=== PATIENT | female | born 1955 | race Caucasian/White ===

== ENCOUNTER → 2018-05-25 14:14 | Outpatient (CLI) | payer OTHER, SELFPAY ==
--- NOTE | 2018-05-25 14:17 | BI_ITS ---
MAMMOGRAPHY - BILATERAL SCREENING REASON FOR EXAM: Female, 63 years old. Routine annual screening examination. PERTINENT HISTORY: Non-contributory. Remote bilateral excisional breast biopsies. TECHNIQUE: Digital bilateral breast gil (3D mammographic acquisition) in the CC and MLO projections. 2-D mediolateral oblique (MLO) and craniocaudad (CC) views of both breasts were obtained. CAD: Full Field Digital Mammography with Computer Added Detection was performed. COMPARISON: Comparison is made with prior outside examination dated January 28, 2017. FINDINGS: Breast Composition: There are scattered areas of fibroglandular density. There are no dominant masses or suspicious calcifications. Stable appearance of the benign-appearing bilateral axillary lymph nodes. No other significant abnormalities are identified. There has been no significant change since the prior study. BI/SCREENING MAMM (CAD), BILAT IMPRESSION: Stable bilateral screening mammogram. Yearly follow-up mammogram recommended. (A) ASSESSMENT CATEGORY: BIRADS Category 2: Benign. A letter regarding these results will be sent to the patient by the facility within 30 days. Approximately 10% of breast cancers are not detected by mammography. A normal mammogram should not delay biopsy of a clinically suspicious abnormality. [id number] Electronically Signed: Maciel Lutz MD at 15:42 EDT Tel [phone], Service support ,
--- NOTE | 2018-05-25 14:19 | BD_ITS ---
STUDY: DUAL ENERGY X-RAY ABSORPTIOMETRY / DXA REASON FOR EXAM: Female, 63 years old. The patient is postmenopausal. Loss of height. TECHNIQUE: Bone Mineral Density (BMD) measurements of lumbar spine and bilateral hips were obtained. COMPARISON: None. FINDINGS: Lumbar Spine (L1-L4): g/cm2 (0.814) / T-score (-3.1) / Z-score (-1.6) Findings are suggestive of osteoporosis with a high fracture risk. Increased thoracic kyphosis. Left Femur Total: g/cm2 (0.719) / T-score (-2.3) / Z-score (-1.2) Left Femoral Neck: g/cm2 (0.638) / T-score (-2.9) / Z-score (-1.5) Right Femur Total: g/cm2 (0.650) / T-score (-2.8) / Z-score (-1.7) Right Femoral Neck: g/cm2 (0.590) / T-score (-3.2) / Z-score (-1.8) BD/Dexa Bone Density Study IMPRESSION: The patient is considered osteoporotic as outlined below according to World Mukund Organization (WHO) criteria with a high fracture risk. Reference Information: The T-score is the number of standard deviations above or below the standard which is normal for young adults at their peak bone mineral density. The World Health Organization (WHO) interprets the T-scores as follows: Above -1 Normal bone density Between -1 and -2.5 Osteopenia Equal to / or below -2.5 Osteoporosis As a practical clinical guideline, osteopenia may be graded as follows: Mild -1 through -1.5 Moderate -1.6 through -2.0 Severe -2.1 through -2.4 The Z-score is the number of standard deviations above or below age-matched controls. A Z-score of less than -1.5 would be considered abnormal. References: 1. NIH Osteoporosis and Related Bone Diseases http://www.osteo.org 2. International Society for Clinical Densitometry http://www.iscd.org 3. National Osteoporosis Foundation http://www.nof.org Electronically Signed: Maciel Lutz MD at 12:28 EDT Tel [phone], Service support ,
== END ==
PROVIDERS: Family Provider Family Medicine; PCP Family Medicine; Visit Provider Family Medicine
DX: Z12.31 Encounter for screening mammogram for malignant neoplasm of breast (principal); Z78.0 Asymptomatic menopausal state; M40.209 Unspecified kyphosis, site unspecified; M81.0 Age-related osteoporosis without current pathological fracture
CPT/HCPCS: 77063; 77067; 77080

== ENCOUNTER → 2018-06-08 10:26 | Outpatient (CLI) | payer OTHER, SELFPAY ==
[2018-06-08 11:57] LABS: Anion Gap 10 (5-15); BUN 11 mg/dL (7-18); BUN/Creat Ratio 14.4 RATIO (10-20); Calcium,Total 8.9 mg/dL (8.5-10.1); Chloride 105 mmol/L (98-107); Cholesterol 245 mg/dL (200); Creatinine, Serum 0.77 mg/dL (0.55-1.02); EST Glomerular Filtration Rate 81 mL/min (>60); Est Glom Filt Rate - Afr Amer 98 mL/min (>60); Glucose 98 mg/dL (74-106); High Density Lipoprotein 65 mg/dL; Potassium 4.1 mmol/L (3.5-5.1); Sodium Level 138 mmol/L (136-145); Triglycerides 228 mg/dL; Very Low Density Lipoprotein 46 mg/dL (5-40)
== END ==
PROVIDERS: Family Provider Family Medicine; PCP Family Medicine; Visit Provider Family Medicine
DX: I10 Essential (primary) hypertension (principal)
CPT/HCPCS: 36415; 80048; 80061

== ENCOUNTER → 2018-08-19 10:13 | Outpatient (CLI) | payer OTHER, SELFPAY ==
[2018-08-19 12:34] LABS: AST(SGOT) 20 U/L (15-37); Alanine Aminotransfer ALT/SGPT 36 U/L (13-56); Cholesterol 192 mg/dL (200); High Density Lipoprotein 70 mg/dL; Triglycerides 216 mg/dL; Very Low Density Lipoprotein 43 mg/dL (5-40)
== END ==
PROVIDERS: Family Provider Family Medicine; PCP Family Medicine; Visit Provider Family Medicine
DX: I10 Essential (primary) hypertension (principal)
CPT/HCPCS: 36415; 80061; 84450; 84460

== ENCOUNTER → 2019-05-30 09:44 | Outpatient (CLI) | payer OTHER, SELFPAY ==
[2019-05-30 11:37] LABS: AST(SGOT) 22 U/L (15-37); Alanine Aminotransfer ALT/SGPT 32 U/L (13-56); Anion Gap 8 (5-15); BUN 11 mg/dL (7-18); BUN/Creat Ratio 15.6 RATIO (10-20); Calcium,Total 9.2 mg/dL (8.5-10.1); Chloride 109 mmol/L (98-107); Cholesterol 167 mg/dL (200); Creatinine, Serum 0.71 mg/dL (0.55-1.02); EST Glomerular Filtration Rate 88 mL/min (>60); Est Glom Filt Rate - Afr Amer 107 mL/min (>60); Glucose 116 mg/dL (74-106); High Density Lipoprotein 73 mg/dL; Potassium 4.1 mmol/L (3.5-5.1); Sodium Level 142 mmol/L (136-145); Triglycerides 129 mg/dL; Very Low Density Lipoprotein 26 mg/dL (5-40)
== END ==
PROVIDERS: Family Provider Family Medicine; PCP Family Medicine; Visit Provider Family Medicine
DX: I10 Essential (primary) hypertension (principal)
CPT/HCPCS: 36415; 80048; 80061; 84450; 84460

== ENCOUNTER → 2019-11-29 09:53 | Outpatient (CLI) | payer OTHER, SELFPAY ==
[2019-11-29 13:06] LABS: Anion Gap 6 (5-15); BUN 9 mg/dL (7-18); BUN/Creat Ratio 11.6 RATIO (10-20); Calcium,Total 9.2 mg/dL (8.5-10.1); Chloride 112 mmol/L (98-107); Creatinine, Serum 0.78 mg/dL (0.55-1.02); EST Glomerular Filtration Rate 79 mL/min (>60); Est Glom Filt Rate - Afr Amer 96 mL/min (>60); Glucose 105 mg/dL (74-106); Potassium 3.9 mmol/L (3.5-5.1); Sodium Level 142 mmol/L (136-145)
== END ==
PROVIDERS: Family Provider Family Medicine; PCP Family Medicine; Referring Provider Family Medicine; Visit Provider Family Medicine
DX: I10 Essential (primary) hypertension (principal)
CPT/HCPCS: 36415; 80048

== ENCOUNTER → 2020-04-20 10:03 | Outpatient (CLI) | payer MEDICARE, SELFPAY ==
--- NOTE | 2020-04-20 10:09 | RAD_ITS ---
STUDY: X-RAY CHEST REASON FOR EXAM: Female, 65 years old. Dyspnea TECHNIQUE: PA and lateral views of the chest. COMPARISON: None. FINDINGS: There is hyperinflation of the lungs consistent with chronic obstructive lung disease (COPD). There is blunting of both calcified angles posteriorly. Normal size heart. Normal mediastinum and jay. Normal visualized pulmonary arteries. There is atherosclerotic calcification of the aortic arch with tortuosity. There is demineralization of the osseous structures. Increased kyphosis. Normal visualized ribs, clavicles, and shoulders. There is no demonstrated abnormality of the visualized soft tissue structures of the upper abdomen. RAD/Chest PA and Lateral IMPRESSION: Hyperinflation. Blunting of both cost phrenic angles. Electronically Signed: Maciel Lutz, at 10:30 EDT , Service support ,
[2020-04-20 12:51] LABS: Erythrocyte Sedimentation Rate 58 mm/hr (0-30)
[2020-04-20 12:53] LABS: Basophil# 0.07 X10^3/uL; Basophil% 0.6 % (0-1); Eosinophil# 0.01 X10^3/uL; Eosinophils% 0.1 % (0-5); Hemoglobin 12.2 g/dL (12.0-15.0); Lymphocyte % 10.1 % (19-41); Mean Corp Hgb Conc 32.1 g/dL (32-36); Mean Corpuscular Hgb 28.7 pg (27.0-32.0); Mean Corpuscular Volume 89.4 fL (81-99); Mean Platelet Vol. 9.7 fl (6.2-12.0); Monocyte# 1.13 X10^3/uL; Monocyte% 9.5 % (0-10); NRBC Flagged by Analyzer 0 % (0-5); Neutrophil # 8.96 X10^3/uL (2.7-7.7); Neutrophil % 75.7 % (47-70); Platelet Count 533 K/mm3 (150-450); RBC Distribution Width CV 14.1 % (11.6-14.6); RBC Distribution Width SD 45.4 fl (35.1-43.9); Red Blood Count 4.25 M/mm3 (4.2-5.4); White Blood Count 11.8 K/mm3 (4.4-11.0)
[2020-04-20 13:04] LABS: Glucose 137 mg/dL (74-106)
[2020-04-20 13:05] LABS: ALB/GLOB Ratio 0.5 RATIO (0.9-2.4); AST(SGOT) 19 U/L (15-37); Alanine Aminotransfer ALT/SGPT 33 U/L (13-56); Albumin, Serum 2.8 g/dL (3.2-5.0); Alkaline Phosphatase 109 U/L (45-117); Anion Gap 13 (5-15); BUN 36 mg/dL (7-18); BUN/Creat Ratio 15.9 RATIO (10-20); Calcium,Total 11.2 mg/dL (8.5-10.1); Chloride 88 mmol/L (98-107); Creatinine, Serum 2.26 mg/dL (0.55-1.02); EST Glomerular Filtration Rate 23 mL/min (>60); Est Glom Filt Rate - Afr Amer 28 mL/min (>60); Globulin 5.6 g/dL (2.2-4.2); Potassium 3.7 mmol/L (3.5-5.1); Protein, Total 8.4 g/dL (6.4-8.2); Sodium Level 127 mmol/L (136-145); Thyroid Stim Hormone (TSH) 3.65 uIU/mL (0.358-3.74)
== END ==
PROVIDERS: PCP Family Medicine; Referring Provider Family Medicine; Visit Provider Family Medicine
DX: R06.00 Dyspnea, unspecified (principal); R53.83 Other fatigue
CPT/HCPCS: 36415; 71046; 80053; 84443; 85025; 85652

== ENCOUNTER 2020-04-20 18:52 | Inpatient (IN) | payer MEDICARE, SELFPAY ==
[2020-04-20 18:53] VITALS: BP 94/46; PULSE 122; RESP 14; TEMP 36.5; O2SAT 97; BMI 24.8
--- NOTE | 2020-04-20 19:24 | EKG12_ITS ---
Test Reason : GENERAL ILLNESS Blood Pressure : / mmHG Vent. Rate : 095 BPM Atrial Rate : 095 BPM P-R Int : 134 ms QRS Dur : 084 ms QT Int : 364 ms P-R-T Axes : 051 029 053 degrees QTc Int : 457 ms Normal sinus rhythm Normal ECG Confirmed by COREY BAILON ([id number]), production editor PEACE MENA ([id number]) on 04/23/2020 10:59:50 AM Referred By: MADELAINE Confirmed By:COREY BAILON
--- NOTE | 2020-04-20 19:28 | ED.DCSUM_ITS ---
- ER Visit Summary Date of Service: 04/20/20 Chief Complaint: Nausea, vomiting, dizziness, and weakness History of Present Illness: The patient is a 65 F who presents with nausea and vomiting, dizziness, and weakness over the past 5 weeks. Patient states her emesis is stomach contents. Patient denies any hematemesis or coffee-ground emesis. Patient states this is worse with eating. Patient states that Tums helps at times. Patient denies any diarrhea, melena, or hematochezia. Patient denies any urinary complaints. Patient admits to subjective chills but denies any fevers. Patient has a history of colon cancer with a colostomy. Patient states she had an outpatient chest x-ray today which showed a questionable mass. Physical Examination: Vital signs show a blood pressure of 94/46 and a tachycardia of 122. Patient is afebrile. Patient is in no acute distress. Oral mucosa is pink and moist. Neck is supple. Trachea is midline. There is no JVD. Heart was regular and tachycardic. Lungs were clear and equal bilaterally. Abdomen is soft. Bowel sounds are normal. There is no tenderness. There is no rebound or guarding noted. Cranial nerves II through XII are intact. There are no focal motor or sensory deficits noted. Extremities are intact. There is no calf tenderness or edema. Test Results: CBC shows a mild leukocytosis of 14.4. Basic metabolic profile showed a BUN of 40 and a creatinine of 2.33 which were new compared to previous results. Sodium was 127 and chloride was 86. These were also new. Troponin was normal. EKG showed normal sinus rhythm with a rate of 95. There are no acute ST or T wave changes. PA and lateral chest x-ray that was done earlier today showed mild blunting of the costophrenic angles but no acute cardiopulmonary process. This was interpreted by the radiologist and reviewed by myself. Emergency Department Course and Treatment: Patient was given IV fluids here. Patient was feeling better on reevaluation. Patient's heart rate and blood pressure improved. Case was discussed with the hospitalist. He will admit the patient to his service. Patient understood and was agreeable with the plan. All questions were answered. Disposition: Admit to hospital Impression: 1. Acute kidney injury 2. Hyponatremia This note was generated with [employer] software. It may contain incorrect words, spelling, and punctuation that were not noted in review of the chart prior to signing ED Disposition - Plan for ED Patient: Disposition: Acute Care Hospital [facility] Diagnosis: Acute kidney injury, Hyponatremia Referrals: Virginie Mazariegos MD [Primary Care Provider] -
[2020-04-20] MEDS: 0.9% Normal Saline 1,000 ML 1000 ML IV (19:52)
[2020-04-20] MEDS: Ondansetron 4 MG/2 ML Vial IV (19:52)
[2020-04-20 19:58] LABS: Absolute Lymphocyte Count 1.48 X10^3/uL (0.83-4.51); Absolute Neutrophil Count 10.7 X10^3/uL (2.0-7.7); Basophil# 0.07 X10^3/uL; Basophil% 0.5 % (0-1); Eosinophil# 0.03 X10^3/uL; Eosinophils% 0.2 % (0-5); Hemoglobin 12.1 g/dL (12.0-15.0); Lymphocyte # 1.48 X10^3/ul (4.0); Lymphocyte % 10.3 % (19-41); Mean Corp Hgb Conc 32.7 g/dL (32-36); Mean Corpuscular Hgb 28.9 pg (27.0-32.0); Mean Corpuscular Volume 88.3 fL (81-99); Mean Platelet Vol. 9.6 fl (6.2-12.0); Monocyte% 11.8 % (0-10); NRBC Flagged by Analyzer 0 % (0-5); Neutrophil # 10.74 X10^3/uL (2.7-7.7); Neutrophil % 74.6 % (47-70); POSITIVE DIFFERENTIAL YES; Platelet Count 498 K/mm3 (150-450); RBC Distribution Width CV 14.5 % (11.6-14.6); RBC Distribution Width SD 45.2 fl (35.1-43.9); Red Blood Count 4.19 M/mm3 (4.2-5.4); White Blood Count 14.4 K/mm3 (4.4-11.0)
[2020-04-20 20:02] LABS: ALB/GLOB Ratio 0.5 RATIO (0.9-2.4); AST(SGOT) 20 U/L (15-37); Alanine Aminotransfer ALT/SGPT 36 U/L (13-56); Albumin, Serum 2.9 g/dL (3.2-5.0); Alkaline Phosphatase 115 U/L (45-117); Anion Gap 14 (5-15); BUN 40 mg/dL (7-18); BUN/Creat Ratio 17.2 RATIO (10-20); Calcium,Total 11.2 mg/dL (8.5-10.1); Chloride 86 mmol/L (98-107); Creatinine, Serum 2.33 mg/dL (0.55-1.02); Differential Indicated SCAN CRITERIA MET; EST Glomerular Filtration Rate 22 mL/min (>60); Est Glom Filt Rate - Afr Amer 27 mL/min (>60); Estimated Creatinine Clearance 22.53 ml/min; Globulin 5.7 g/dL (2.2-4.2); Glucose 125 mg/dL (74-106); Potassium 3.3 mmol/L (3.5-5.1); Protein, Total 8.6 g/dL (6.4-8.2); Sodium Level 127 mmol/L (136-145)
[2020-04-20 20:25] LABS: Platelet Estimate ADEQUATE (ADEQ); Red Cell Morphology NORM C+C NORMAL (NORM C&C)
[2020-04-20 20:33] VITALS: BP 125/58; PULSE 98; RESP 21; TEMP 36.7; O2SAT 100
--- NOTE | 2020-04-20 20:37 | ED.RN ---
Spoke with Dr. Douglass, ok to not get urine in ED
--- NOTE | 2020-04-20 20:47 | HP.PCM_ITS ---
Problem List (1) History of colon cancer Status: Chronic (2) Depression Status: Chronic (3) GERD (gastroesophageal reflux disease) Status: Chronic (4) Hyperlipidemia Status: Chronic (5) Hypertension Status: Chronic (6) Acute kidney injury Status: Acute (7) Hyponatremia Status: Acute History of Present Illness Date of Admission: 04/20/20 Chief Complaint: Palpitation, weakness. The patient is a 65 year old F with past medical history as mentioned above presented to the emergency room because of weakness, palpitation, nausea and vomiting that has been going on for 5 weeks. Redness started around 4 weeks ago with mild symptoms of being generally weak, tired, associated with intermittent nausea and poor appetite. Her symptoms has been progressive and in the last couple of weeks, she has been having palpitation, fast heartbeats associated with dizziness and profound weakness and she continued to have intermittent nausea and vomiting. There was no aggravating or relieving factors. She denied syncope or presyncope. She denied chest pain or shortness of breath. She denied fever or chills. She denied sick contacts or recent travel. She does have a history of colon cancer status post resection, status post colostomy. She mentioned that her stool output on the colostomy bag is decreasing. Denied any hemoptysis, hematochezia or melena. She denied urinary symptoms. In the emergency department, initial blood pressure was borderline, improved with IV fluids. She was tachycardic which also improved with IV fluids, was afebrile and pulse ox was 97% on room air. Routine blood work was remarkable for leukocytosis, sodium of 127, potassium of 3.3, BUN is 40, creatinine is 2.33. Her calcium is 11.2 mg/dL. EKG revealed normal sinus rhythm, normal NC interval, normal QRS, normal QTC, no acute changes. Troponin was negative. LFT was unremarkable. She had chest x-ray done today as outpatient that revealed signs of hyperinflation, no acute infiltrate or consolidation. She is being admitted for acute kidney injury with hyponatremia and hypokalemia. Past Medical History Past Medical History (Chronic Problems): Chronic Problems History of colon cancer (Chronic) Depression (Chronic) GERD (gastroesophageal reflux disease) (Chronic) Hyperlipidemia (Chronic) Hypertension (Chronic) Allergies No Known Allergies Allergy (Verified 04/20/20 18:53) Home Medications: Ambulatory Orders Medication Instructions Recorded Alendronate Sodium 70 mg PO QWEEK 04/20/20 Atorvastatin Calcium 20 mg PO DAILY 04/20/20 Escitalopram Oxalate 20 mg PO DAILY 04/20/20 Metoprolol Tartrate 25 mg PO BID 04/20/20 Surgical History: colectomy, hysterectomy Psychiatric History: Depression [employer]OR [employer] History: No pertinent [employer] history Lives: Spouse/ Significant Other Smoking Status: Former smoker Alcohol: None Drugs: None - *Family History Maternal History Items: No pertinent history Paternal History Items: No pertinent history Review of Systems Constitutional: Reports: Anorexia, Weakness, Fatigue. Denies: Chills, Fever Eyes: Denies: Blurred vision, Double vision, Drainage, Redness HEENT: Denies: Difficulty Hearing, Ear Pain, Eye Pain, Nasal Congestion, Sore Throat Cardiovascular: Reports: Light Headedness. Denies: Chest Pain, Chest Pressure, Chest Tightness, Heaviness, Palpitations, Syncope Respiratory: Denies: Cough, Hemoptysis, Pleuritic Pain, Shortness of Breath, Sputum production, Wheezing Gastrointestinal: Reports: Nausea, Vomiting. Denies: Abdominal Pain, Constipation, Diarrhea, Hematochezia, Melena Genitourinary: Denies: Dysuria, Frequency, Hematuria Musculoskeletal: Denies: Arm Pain, Back Pain, Foot Pain Skin: Denies: Dryness, Rash Neurological: Denies: Balance problems, Double vision, Change in Speech, Slurred speech, Confusion, Focal weakness, Headaches, Incoordination Psychiatric: Reports: Depression. Denies: Anxiety Endocrine: Denies: Change in Body Habitus, Polydipsia, Polyuria VTE Information - Inpt Only VTE Present on Admission: No VTE Mechan Device Prophylaxis: None VTE Pharm Prophylaxis ordered?: Yes Patient Problems: Active and Suspected Problems Acute kidney injury (Acute) Hyponatremia (Acute) - Physical Exam Vitals/I&O's: Vital Signs Temp Pulse Resp BP Pulse Ox 98.0 F 98 21 H 125/58 H 100 04/20/20 20:33 04/20/20 20:33 04/20/20 20:33 04/20/20 20:33 04/20/20 20:33 Oxygen Delivery Method Room Air Weight: 154 lb Body Mass Index (BMI) 24.8 General: Alert, Oriented x3, Cooperative, No apparent distress HEENT: Atraumatic, PERRLA, EOMI, Normocephalic Oral: Moist Mucosa, No Gingival or Mucosal Lesions/ Ulcerations Neck: Supple, No JVD, Negative Carotid Bruits, Trachea Midline, Thyroid Normal Size and Texture Lungs: Clear to auscultation, Normal air movement, No rhonchi, No wheeze, No rales, Diminished Cardiovascular: Regular rate, Regular Rhythm, Normal S1, Normal S2, PMI Normal, Tachycardic Abdomen: Bowel Sounds Present, Soft, Non Tender, Non-Distended, - - Right lower quadrant colostomy bag in place. Extremities: No clubbing, No cyanosis, No edema Skin: No rashes, No breakdown Lymphatic: No Cervical, Supraclavicular, or Inguinal Adenopathy Neurological: Cranial nerves II-XII grossly intact, Motor Exam 5/5 strength throughout Psych/Mental Status: Normal Affect, Appropriate, Alert and oriented to time, place, person, mood and affect Laboratory Results 04/20/20 19:12: WBC 14.4 H, RBC 4.19 L, Hgb 12.1, Hct 37.0, MCV 88.3, MCH 28.9, MCHC 32.7, RDW Std Deviation 45.2 H, RDW Coeff of [place]sh[place] 14.5, Plt Count 498 H, MPV 9.6, Immature Gran % (Auto) 2.600 H, Neut % (Auto) 74.6 H, Lymph % (Auto) 10.3 L , [place] % (Auto) 11.8 H, Eos % (Auto) 0.2, Baso % (Auto) 0.5, Absolute Neuts (auto) 10.7 H, Absolute Lymphs (auto) 1.48, Nucleated RBC % 0, Differential Comment , Platelet Estimate ADEQUATE, RBC Morphology NORM C+C 04/20/20 19:12: Sodium 127 L, Potassium 3.3 L, Chloride 86 L, Carbon Dioxide 27.0, Anion Gap 14, BUN 40 H, Creatinine 2.33 H, Estim Creat Clear Calc 22.53, Est GFR (MDRD) Af Amer 27 L, Est GFR (MDRD) Non-Af 22 L, BUN/Creatinine Ratio 17.2, Glucose 125 H, Calcium 11.2 H, Total Bilirubin 0.40, AST 20, ALT 36, Alkaline Phosphatase 115, Troponin I < 0.015, Total Protein 8.6 H, Albumin 2.9 L , Globulin 5.7 H, Albumin/Globulin Ratio 0.5 L Assessment/Plan All Active Problems Acute kidney injury (Acute) Hyponatremia (Acute) This is a 65 years old female patient presented to the emergency room because of 5 weeks history of weakness, palpitation, dizziness, poor appetite with nausea and vomiting and she was found to have acute kidney injury, hyponatremia and hypokalemia and she is being admitted for treatment. #1 acute kidney injury: It is prerenal secondary to dehydration, poor oral intake. No history suggestive of infectious etiology. No diarrhea or constipation. She has been afebrile, no cough or sputum production. No change in the stool output from the colostomy. EKG was unremarkable as above. Chest x-ray that was done today as outpatient was unremarkable as well. She does have leukocytosis which is likely reactive. TSH was done today as outpatient and it was normal. Plan: Admit to [facility] floor, encourage regular diet, IV fluids, replace electrolytes as appropriate, check serum magnesium, stool for C. difficile, stool for enteric pathogens, urinalysis, Tylenol PRN, Zofran PRN, IV Protonix, repeat CBC and BMP tomorrow morning. #2 hyponatremia/hypokalemia: Sodium is 127, likely hypovolemic hyponatremia secondary to dehydration. Potassium is 3.3, no EKG changes. Serum calcium is 11.2 which is slightly related, likely because of dehydration. Plan: Check serum magnesium, replace potassium with IV potassium chloride, IV fluids above, repeat BMP tomorrow morning. #3 history of colon cancer: Status post colectomy, colostomy. Patient denied any abdominal pain, no diarrhea, no change in the stool output of the colostomy bag. Cancer is stable, in remission. #4 hypertension: Initially, blood pressure was borderline, improved with IV fluid. Patient was tachycardic, improved as well with IV fluids. Plan to continue metoprolol. #5 hyperlipidemia: Continue statins. #6 depression: Continue escitalopram. #7 DVT prophylaxis: Subcu heparin. This note was generated with [employer] software. It may contain incorrect words, spelling, and punctuation that were not noted in checking the note before signing. Inpatient E&M: 40329 Init Hosp L3
[2020-04-20 21:23] VITALS: BMI 26.0
[2020-04-20 21:28] VITALS: BMI 26.0
[2020-04-20] MEDS: Lactated Ringers 1,000 ML 125 ML IV (21:57)
[2020-04-20] MEDS: Atorvastatin Calcium 20 MG Tablet PO (22:01)
[2020-04-20] MEDS: Heparin Injection (Vial) 5,000 UNIT/ML VIAL 5000 UNIT SC (22:01)
[2020-04-20 22:02] VITALS: PULSE 92
[2020-04-20] MEDS: Metoprolol Tartrate 25 MG Tablet PO (22:02)
[2020-04-20 22:09] VITALS: BP 126/56; PULSE 92; RESP 16; TEMP 36.7; O2SAT 98
[2020-04-20 22:22] LABS: Magnesium 1.3 mg/dL (1.6-2.6)
[2020-04-20 22:57] VITALS: O2SAT 99
[2020-04-20] MEDS: Potassium Chloride 10mEq/100mL 10 MEQ/100 ML IV.SOLN. 100 MEQ IV BOLUS (23:26)
[2020-04-20 23:29] VITALS: PULSE 83
[2020-04-20 23:50] LABS: Bacteria 0 SEEN /hpf (None Seen); Mucous, Urine 0 SEEN /hpf (<or=2+); Red Blood Cells-Urine 0 SEEN /hpf (0-5)
[2020-04-21] VITALS (12 sets, daily range): BP systolic 91–114; BP diastolic 46–57; PULSE 68–94; RESP 16–18; TEMP 36.6–36.7; O2SAT 97–100
[2020-04-21] LABS: Color, Urine Yellow (Yellow); Glucose, Dipstick Normal (Normal); Ketone-Dipstick 5 mg/dl (Negative); Leukocyte Esterase-Dipstick 25 /ul (Negative); Nitrite-Dipstick Negative (Negative); Occult Blood-Urine Negative /ul (Negative); Protein-Dipstick 30 mg/dl (Negative); Urine Bilirubin Dipstick Negative (Negative); Urine Clarity Sl. Cloudy (Clear); Urine Urobilinogen Normal (Normal)
[2020-04-21 00:09] LABS: Hyaline Cast 25-50 SEEN /lpf (0-5); Squamous Epithelial Cells - UA 5-10 SEEN /hpf (5-10)
[2020-04-21 00:12] LABS: Transitional Epithelial - Ur 0-5 SEEN /hpf (0-5); Uric Acid Crystals Ur 2+ /hpf (<or=1+); White Blood Cells 5-10 SEEN /hpf (0-5)
[2020-04-21] MEDS: 0.9% Saline Lock 10 ML Syringe IV (00:46)
[2020-04-21] MEDS: Potassium Chloride 10mEq/100mL 10 MEQ/100 ML IV.SOLN. 100 MEQ IV BOLUS (00:46)
[2020-04-21] MEDS: Magnesium Sulfate 4gm/100mL 4 GM/100 ML IV.SOLN. IV (02:55)
[2020-04-21] MEDS: Heparin Injection (Vial) 5,000 UNIT/ML VIAL 5000 UNIT SC ×3 (06:38→21:29)
[2020-04-21 07:02] LABS: Absolute Lymphocyte Count 1.35 X10^3/uL (0.83-4.51); Absolute Neutrophil Count 5.3 X10^3/uL (2.0-7.7); Basophil# 0.03 X10^3/uL; Basophil% 0.4 % (0-1); Eosinophil# 0.03 X10^3/uL; Eosinophils% 0.4 % (0-5); Hematocrit 29.5 % (37-47); Hemoglobin 9.4 g/dL (12.0-15.0); Lymphocyte # 1.35 X10^3/ul (4.0); Mean Corp Hgb Conc 31.9 g/dL (32-36); Mean Corpuscular Hgb 28.9 pg (27.0-32.0); Mean Corpuscular Volume 90.8 fL (81-99); Mean Platelet Vol. 9.4 fl (6.2-12.0); Monocyte% 11.3 % (0-10); NRBC Flagged by Analyzer 0 % (0-5); Neutrophil # 5.34 X10^3/uL (2.7-7.7); Neutrophil % 67.1 % (47-70); Platelet Count 341 K/mm3 (150-450); RBC Distribution Width CV 14.3 % (11.6-14.6); RBC Distribution Width SD 46.6 fl (35.1-43.9); Red Blood Count 3.25 M/mm3 (4.2-5.4)
--- NOTE | 2020-04-21 09:25 | PCM.PN.HOSP ---
Patient Problems: Active and Suspected Problems Acute kidney injury (Acute) Hyponatremia (Acute) Subjective: Feels better with Zofran and IV fluids. Still has slight epigastric abdominal pain that started when she started taking Fosamax. She has not noticed an increase in her ostomy output, in fact she says it is gone down to backslash which is likely nausea and vomiting which is likely decreased p.o. intake Vitals/I&O's: Vital Signs Temp Pulse Resp BP Pulse Ox 97.9 F 79 18 91/46 L 99 04/21/20 04:09 04/21/20 08:46 04/21/20 04:09 04/21/20 04:09 04/21/20 04:09 Oxygen Delivery Method Room Air Weight: 156 lb 8 oz Body Mass Index (BMI) 26.0 Intake and Output for Last 24 Hours 04/19/20 04/20/20 04/21/20 23:59 23:59 23:59 Intake Total 1255.83 / 1255.83 550 / 550 Output Total 300 / 300 Balance 1255.83 / 955.83 250 / 250 General: Alert, Oriented x3, Cooperative, No apparent distress HEENT: Atraumatic, PERRLA, EOMI, Normocephalic Oral: Moist Mucosa Neck: Supple, No JVD Lungs: Clear to auscultation, Normal air movement, No rhonchi, No wheeze, No rales, Diminished Cardiovascular: Regular rate, Regular Rhythm, Normal S1, Normal S2, No murmurs Abdomen: Soft, Non Tender, Non-Distended, No Hepato-splenomegaly, - - Right lower quadrant colostomy intact Extremities: No edema, Capillary Refill Less than 3 Seconds Skin: No rashes, No breakdown Neurological: Neuro grossly intact, Sensory exam intact to light touch and pain Psych/Mental Status: Normal Affect, Appropriate Microbiology Past 72 Hours 04/20/20 23:35 Stool C. difficile DNA Amplification - Final Laboratory Results 04/20/20 19:12: WBC 14.4 H, RBC 4.19 L, Hgb 12.1, Hct 37.0, MCV 88.3, MCH 28.9, MCHC 32.7, RDW Std Deviation 45.2 H, RDW Coeff of [place]sh[place] 14.5, Plt Count 498 H, MPV 9.6, Immature Gran % (Auto) 2.600 H, Neut % (Auto) 74.6 H, Lymph % (Auto) 10.3 L, [place] % (Auto) 11.8 H, Eos % (Auto) 0.2, Baso % (Auto) 0.5, Absolute Neuts (auto) 10.7 H, Absolute Lymphs (auto) 1.48, Nucleated RBC % 0, Differential Comment , Diff Path Review May , Platelet Estimate ADEQUATE, RBC Morphology NORM C+C 04/20/20 19:12: Sodium 127 L, Potassium 3.3 L, Chloride 86 L, Carbon Dioxide 27.0, Anion Gap 14, BUN 40 H, Creatinine 2.33 H, Estim Creat Clear Calc 22.53, Est GFR (MDRD) Af Amer 27 L, Est GFR (MDRD) Non-Af 22 L, BUN/Creatinine Ratio 17.2, Glucose 125 H, Calcium 11.2 H, Total Bilirubin 0.40, AST 20, ALT 36, Alkaline Phosphatase 115, Troponin I < 0.015, Total Protein 8.6 H, Albumin 2.9 L, Globulin 5.7 H, Albumin/Globulin Ratio 0.5 L 04/20/20 19:12: Magnesium 1.3 L 04/20/20 23:35: Urine Color Yellow, Urine Clarity Sl. Cloudy, Urine pH 5.0, Ur Specific [place] 1.020, Urine Protein 30 H, Urine Glucose (UA) Normal, Urine Ketones 5 H, Urine Occult Blood Negative, Urine Nitrite Negative, Urine Bilirubin Negative, Urine Urobilinogen Normal, Ur Leukocyte Esterase 25 H, Urine RBC 0 SEEN, Urine WBC 5-10 SEEN, Ur Squamous Epith Cells 5-10 SEEN, Ur Transition Epith Cell 0-5 SEEN, Uric Acid Crystals 2+, Urine Bacteria 0 SEEN, Hyaline Casts 25-50 SEEN, Urine Mucus 0 SEEN 04/21/20 06:20: WBC 8.0, RBC 3.25 L, Hgb 9.4 L, Hct 29.5 L, MCV 90.8, MCH 28.9, MCHC 31.9 L, RDW Std Deviation 46.6 H, RDW Coeff of [place]sh[place] 14.3, Plt Count 341, MPV 9.4, Immature Gran % (Auto) 3.800 H, Neut % (Auto) 67.1, Lymph % (Auto) 17.0 L, [place] % (Auto) 11.3 H, Eos % (Auto) 0.4, Baso % (Auto) 0.4, Absolute Neuts (auto) 5.3, Absolute Lymphs (auto) 1.35, Nucleated RBC % 0 04/21/20 06:20: Sodium Cancelled, Potassium Cancelled, Chloride Cancelled, Carbon Dioxide Cancelled, Anion Gap Cancelled, BUN Cancelled, Creatinine Cancelled, Estim Creat Clear Calc Cancelled, Est GFR (MDRD) Af Amer Cancelled, Est GFR (MDRD) Non-Af Cancelled, BUN/Creatinine Ratio Cancelled, Glucose Cancelled, Calcium Cancelled 04/21/20 08:25: Sodium Pending, Potassium Pending, Chloride Pending, Carbon Dioxide Pending, Anion Gap Pending, BUN Pending, Creatinine Pending, Est GFR (MDRD) Af Amer Pending, Est GFR (MDRD) Non-Af Pending, BUN/Creatinine Ratio Pending, Glucose Pending, Calcium Pending Current Medications Acetaminophen (Tylenol) 650 mg PO Q6H PRN PRN PRN Reason: Pain Score 1-10/Temp > 100.7 F Atorvastatin Calcium (Lipitor) 20 mg PO DAILY@2200 [facility] Last Admin: 04/20/20 22:01 Dose: 20 mg Documented by: Escitalopram Oxalate (Lexapro) 20 mg PO DAILY [facility] Heparin Sodium (Porcine) (Heparin Na) 5,000 unit SC Q8 [facility] Last Admin: 04/21/20 06:38 Dose: 5,000 unit Documented by: Lactated Ringer's () 1,000 mls @ 125 mls/hr IV .Q8H [facility] Last Infusion: 04/21/20 01:30 Dose: 125 mls/hr Documented by: Pantoprazole Sodium 40 mg/ (Sodium Chloride) 110 mls @ 330 mls/hr IV Q12 [facility] Last Infusion: 04/20/20 22:17 Dose: Infused Documented by: Sodium Chloride () 250 mls @ 15 mls/hr IV .[id number] PRN PRN Reason: Saline Flush Metoprolol Tartrate (Lopressor (Beta Corinne)) 25 mg PO BID [facility] Last Admin: 04/20/20 22:02 Dose: 25 mg Documented by: Nutritional Formula (Lactose Free) (Ensure Enlive) 120 ml PO 4X/DAY [facility] Last Admin: 04/20/20 22:59 Dose: 120 ml Documented by: Ondansetron HCl (Zofran) 4 mg IV Q8H PRN PRN PRN Reason: NAUSEA/VOMITING Sodium Chloride () 10 - 40 ml IV UD PRN PRN Reason: SALINE FLUSH Last Admin: 04/21/20 00:46 Dose: 10 ml Documented by: Zolpidem Tartrate (Ambien (Generic)) 5 mg PO QHS PRN PRN PRN Reason: INSOMNIA STROKE Vital Signs/Narrative: Vital Signs Pulse 04/21/20 08:46 79 04/21/20 06:48 68 Medical Necessity - Tobacco Use Smoking Status: Former smoker Tobacco Use: Cigarettes Assessment/Plan All Active Problems Acute kidney injury (Acute) Hyponatremia (Acute) 1. TOMAS due to dehydration/hyponatremia and hypokalemia -Sodium is improved to 131 however potassium is still 3.3 -Creatinine is improved to 1.58 from 2.33 -Continue with IV fluids -C. difficile was negative enteric panel is pending -Continue with Zofran -We will advance her diet as able, she may need an upper GI with small bowel follow-through. If she does not have significant improvement in her nausea 2. History of colon cancer and ulcerative colitis -Status post colectomy -Ostomy looks healthy with output 3. HTN/HLD -Blood pressure is stable, can continue with metoprolol -Continue with statins 4. Depression -Stable -Continue with Lexapro DVT: Heparin Inpatient E&M: 78501 Subs Hosp L2
[2020-04-21] MEDS: Lactated Ringers 1,000 ML 125 ML IV ×2 (09:28→17:09)
[2020-04-21] MEDS: Metoprolol Tartrate 25 MG Tablet PO ×2 (09:29→21:30)
[2020-04-21] MEDS: Escitalopram Oxalate 20 MG Tablet PO (09:29)
[2020-04-21 09:32] LABS: Anion Gap 9 (5-15); BUN 31 mg/dL (7-18); BUN/Creat Ratio 19.6 RATIO (10-20); Calcium,Total 9.3 mg/dL (8.5-10.1); Chloride 96 mmol/L (98-107); Creatinine, Serum 1.58 mg/dL (0.55-1.02); EST Glomerular Filtration Rate 35 mL/min (>60); Est Glom Filt Rate - Afr Amer 42 mL/min (>60); Estimated Creatinine Clearance 31.94 ml/min; Glucose 102 mg/dL (74-106); Potassium 3.3 mmol/L (3.5-5.1); Sodium Level 131 mmol/L (136-145)
--- NOTE | 2020-04-21 10:50 | CASEMGMT ---
RN CM Assessment Note Presentation: weakness, nausea, vomiting, dehydration Diagnosis: Acute Kidney Injury, Hyponatremia Intro role of CM to patient. Pt is awake, alert and able to participate in assessment. Pt states she is generally very independent, no care needs identified. States her is able to assist with any needs at home. No concerns voiced at this time. PMH: colon cancer, colostomy, HTN PCP: Dr. Duncan Specialists: none currently Insurance: [employer] Preferred Pharmacy: yes Prescription Benefit: yes LNOK: Zane Sandoval Living Arrangements: Lives independently with her . Though pt has not been feeling well, she states she is generally independent and hopes to return to feeling better soon. has assisted with any care needs. Tranportation: drives or can drive DME: none HHC: none SNF: none Patient DC Goals: Home on discharge DC Plan: Home CM available for discharge planning coordination. Contact CM for any concerns/needs that may arise. Vivian KUMAR RN ACM
[2020-04-21] MEDS: Atorvastatin Calcium 20 MG Tablet PO (21:30)
[2020-04-22] VITALS (12 sets, daily range): BP systolic 90–104; BP diastolic 42–55; PULSE 85–102; RESP 16–18; TEMP 36.4–36.9; O2SAT 94–98
[2020-04-22] MEDS: Lactated Ringers 1,000 ML 125 ML IV ×2 (01:15→09:25)
[2020-04-22] MEDS: Heparin Injection (Vial) 5,000 UNIT/ML VIAL 5000 UNIT SC (06:23)
[2020-04-22 06:24] LABS: Absolute Neutrophil Count 4.9 X10^3/uL (2.0-7.7); Basophil# 0.02 X10^3/uL; Basophil% 0.3 % (0-1); Eosinophil# 0.07 X10^3/uL; Hematocrit 27.9 % (37-47); Hemoglobin 8.5 g/dL (12.0-15.0); Lymphocyte % 14.4 % (19-41); Mean Corp Hgb Conc 30.5 g/dL (32-36); Mean Corpuscular Hgb 28.2 pg (27.0-32.0); Mean Corpuscular Volume 92.7 fL (81-99); Mean Platelet Vol. 9.5 fl (6.2-12.0); Monocyte# 0.69 X10^3/uL; Monocyte% 9.9 % (0-10); NRBC Flagged by Analyzer 0 % (0-5); Neutrophil # 4.92 X10^3/uL (2.7-7.7); Neutrophil % 70.9 % (47-70); Platelet Count 332 K/mm3 (150-450); RBC Distribution Width CV 14.6 % (11.6-14.6); RBC Distribution Width SD 48.7 fl (35.1-43.9); Red Blood Count 3.01 M/mm3 (4.2-5.4); White Blood Count 6.9 K/mm3 (4.4-11.0)
[2020-04-22 06:54] LABS: Anion Gap 5 (5-15); BUN 23 mg/dL (7-18); Calcium,Total 8.1 mg/dL (8.5-10.1); Chloride 104 mmol/L (98-107); Creatinine, Serum 1.15 mg/dL (0.55-1.02); EST Glomerular Filtration Rate 50 mL/min (>60); Est Glom Filt Rate - Afr Amer 61 mL/min (>60); Estimated Creatinine Clearance 43.89 ml/min; Glucose 89 mg/dL (74-106); Magnesium 1.8 mg/dL (1.6-2.6); Sodium Level 134 mmol/L (136-145)
[2020-04-22] MEDS: Metoprolol Tartrate 25 MG Tablet PO ×2 (09:32→21:06)
[2020-04-22] MEDS: Escitalopram Oxalate 20 MG Tablet PO (09:35)
[2020-04-22 09:44] LABS: Ferritin 467 ng/mL (8-252); Iron 25 ug/dL (50-170); Iron Binding Capacity,Total 220 ug/dL (250-450); PERCENT IRON SATURATION 11.4 % (15.0-55.0)
[2020-04-22] MEDS: 0.9% Saline Lock 10 ML Syringe IV ×3 (11:41→21:53)
--- NOTE | 2020-04-22 12:18 | PCA ---
Sent request for medical records to [facility]
--- NOTE | 2020-04-22 12:34 | PCM.PN.HOSP ---
Patient Problems: Active and Suspected Problems Acute kidney injury (Acute) Hyponatremia (Acute) Subjective: Doing well, feels much better. Her hemoglobin dropped today at 8.5 and stool occult was positive for blood. Vitals/I&O's: Vital Signs Temp Pulse Resp BP Pulse Ox 98.5 F 102 H 18 104/55 L 98 04/22/20 09:38 04/22/20 09:38 04/22/20 09:38 04/22/20 09:38 04/22/20 09:38 Oxygen Delivery Method Room Air Weight: 156 lb 7.993 oz Body Mass Index (BMI) 26.0 Intake and Output for Last 24 Hours 04/20/20 04/21/20 04/22/20 23:59 23:59 23:59 Intake Total 1255.83 / 1255.83 3326.26 / 3576.26 / Output Total 700 / 700 Balance 1255.83 / 955.83 2626.26 / 2876.26 / General: Alert, Oriented x3, Cooperative, No apparent distress HEENT: Atraumatic, PERRLA, EOMI, Normocephalic Oral: Moist Mucosa Neck: Supple, No JVD Lungs: Clear to auscultation, Normal air movement, No rhonchi, No wheeze, No rales, Diminished Cardiovascular: Regular rate, Regular Rhythm, Normal S1, Normal S2, No murmurs Abdomen: Soft, Non Tender, Non-Distended, No Hepato-splenomegaly, - - Right lower quadrant colostomy intact Extremities: No edema, Capillary Refill Less than 3 Seconds Skin: No rashes, No breakdown Neurological: Neuro grossly intact, Sensory exam intact to light touch and pain Psych/Mental Status: Normal Affect, Appropriate Microbiology Past 72 Hours 04/22/20 10:40 Stool Stool Occult Blood (MARIA TERESA) - Final Occult Blood Positive 04/20/20 23:35 Stool Enteric Bacteriology - Final 04/20/20 23:35 Stool C. difficile DNA Amplification - Final Laboratory Results 04/22/20 05:12: WBC 6.9, RBC 3.01 L, Hgb 8.5 L, Hct 27.9 L, MCV 92.7, MCH 28.2, MCHC 30.5 L, RDW Std Deviation 48.7 H, RDW Coeff of Gulshan 14.6, Plt Count 332, MPV 9.5, Immature Gran % (Auto) 3.500 H, Neut % (Auto) 70.9 H, Lymph % (Auto) 14.4 L, [place] % (Auto) 9.9, Eos % (Auto) 1.0, Baso % (Auto) 0.3, Absolute Neuts (auto) 4.9, Absolute Lymphs (auto) 1.00, Nucleated RBC % 0 04/22/20 05:12: Sodium 134 L, Potassium 4.0, Chloride 104, Carbon Dioxide 25.0, Anion Gap 5, BUN 23 H, Creatinine 1.15 H, Estim Creat Clear Calc 43.89, Est GFR (MDRD) Af Amer 61, Est GFR (MDRD) Non-Af 50 L, BUN/Creatinine Ratio 20.0, Glucose 89, Calcium 8.1 L, Magnesium 1.8 04/22/20 05:12: Iron 25 L, TIBC 220 L, Iron Saturation 11.4 L, Ferritin 467 H Current Medications Acetaminophen (Tylenol) 650 mg PO Q6H PRN PRN PRN Reason: Pain Score 1-10/Temp > 100.7 F Atorvastatin Calcium (Lipitor) 20 mg PO DAILY@2200 [facility] Last Admin: 04/21/20 21:30 Dose: 20 mg Documented by: Escitalopram Oxalate (Lexapro) 20 mg PO DAILY [facility] Last Admin: 04/22/20 09:35 Dose: 20 mg Documented by: Pantoprazole Sodium 40 mg/ (Sodium Chloride) 110 mls @ 330 mls/hr IV Q12 [facility] Last Infusion: 04/22/20 09:45 Dose: Infused Documented by: Sodium Chloride () 250 mls @ 15 mls/hr IV .[id number] PRN PRN Reason: Saline Flush Metoprolol Tartrate (Lopressor (Beta Corinne)) 25 mg PO BID [facility] Last Admin: 04/22/20 09:32 Dose: 25 mg Documented by: Nutritional Formula (Lactose Free) (Ensure Enlive) 120 ml PO 4X/DAY [facility] Last Admin: 04/22/20 09:37 Dose: 120 ml Documented by: Ondansetron HCl (Zofran) 4 mg IV Q8H PRN PRN PRN Reason: NAUSEA/VOMITING Sodium Chloride () 10 - 40 ml IV UD PRN PRN Reason: SALINE FLUSH Last Admin: 04/22/20 11:41 Dose: 10 ml Documented by: Zolpidem Tartrate (Ambien (Generic)) 5 mg PO QHS PRN PRN PRN Reason: INSOMNIA STROKE Vital Signs/Narrative: Vital Signs Temp Pulse Resp BP Pulse Ox 04/22/20 09:38 98.5 F 102 H 18 104/55 L 98 04/22/20 09:32 102 H 104/55 L Medical Necessity - Tobacco Use Smoking Status: Former smoker Tobacco Use: Cigarettes Assessment/Plan All Active Problems Acute kidney injury (Acute) Hyponatremia (Acute) 1. TOMAS due to dehydration/hyponatremia and hypokalemia/probable upper GI bleed -Sodium is improved to 131 however potassium is still 3.3 -Creatinine is improved to 1.15 from 2.33 -Continue with IV fluids -C. difficile was negative enteric panel is pending -Continue with Zofran -Hemoglobin decreased to 8.5, this is a bigger drop in just dilution, occult blood was positive, consult general surgery for possible EGD, continue with PPI -We will obtain previous records from her colectomy -Clear liquids tonight after midnight and then n.p.o. tomorrow at 8 AM 2. History of colon cancer and ulcerative colitis -Status post colectomy -Ostomy looks healthy with output 3. HTN/HLD -Blood pressure is stable, can continue with metoprolol -Continue with statins 4. Depression -Stable -Continue with Lexapro DVT: SCD Inpatient E&M: 83871 Subs Hosp L2
[2020-04-22] MEDS: Atorvastatin Calcium 20 MG Tablet PO (21:06)
--- NOTE | 2020-04-22 21:49 | CON.PCM_ITS ---
Reason for Consult Date of Consultation: 04/22/20 History of Present Illness: The patient is a 65 year old F initially presented to ER due to weakness also found had acute kidney injury. Patient's hemoglobin has also decreased from 12 on admit to mid nines to 8.5. Fecal occult test was checked and was positive. Patient has a history of ulcerative colitis as well as colon cancer which she had a total colectomy and end ileostomy done at [facility] by Dr. Roberts in 2017. Prior to that patient had couple ventral hernia repairs due to strangulated bowel. Patient states for the last few weeks she has had some epigastric discomfort immediately after eating and occasionally wake her up at night should take some Tums. Patient was not on any medication for GERD previously. Patient states she no longer has any epigastric pain is currently on Protonix IV. Pt states her last EGD was in 2011. Past Medical History Past Medical History (Chronic Problems): Chronic Problems History of colon cancer (Chronic) Depression (Chronic) GERD (gastroesophageal reflux disease) (Chronic) Hyperlipidemia (Chronic) Hypertension (Chronic) Allergies No Known Allergies Allergy (Verified 04/20/20 18:53) Home Medications: Ambulatory Orders Medication Instructions Recorded Alendronate Sodium 70 mg PO WE 04/20/20 Atorvastatin Calcium 20 mg PO DAILY 04/20/20 Escitalopram Oxalate 20 mg PO DAILY 04/20/20 Metoprolol Tartrate 25 mg PO BID 04/20/20 Pantoprazole Sodium [Protonix] 40 mg PO DAILY #30 tab 04/23/20 Surgical History: colectomy - Total due to UC and colon cancer, has an end ileostomy, hysterectomy Psychiatric History: Depression NEW MEDIA STRATEGIST History: No pertinent NEW MEDIA STRATEGIST history Lives: Spouse/ Significant Other Smoking Status: Former smoker Tobacco Use: Cigarettes Alcohol: None Drugs: None - *Family History Maternal History Items: No pertinent history Paternal History Items: No pertinent history Review of Systems Constitutional: Denies: Anorexia Eyes: Denies: Blurred vision HEENT: Denies: Difficulty Swallowing Cardiovascular: Denies: Chest Pain Respiratory: Denies: Shortness of Breath Gastrointestinal: Denies: Abdominal Pain, Nausea, Vomiting Genitourinary: Denies: Dysuria Musculoskeletal: Denies: Joint swelling Skin: Denies: Rash Neurological: Denies: Balance problems Psychiatric: Denies: Anxiety, Depression Hematologic/ Lymphatic: Denies: Easy Bruising, Easy Bleeding - Physical Exam Vitals/I&O's: Vital Signs Temp Pulse Resp BP Pulse Ox 97.6 F L 96 16 99/51 L 98 04/22/20 20:02 04/22/20 21:06 04/22/20 20:02 04/22/20 20:02 04/22/20 20:02 Oxygen Delivery Method Room Air Weight: 156 lb 7.993 oz Body Mass Index (BMI) 26.0 Intake and Output for Last 24 Hours 04/20/20 04/21/20 04/22/20 23:59 23:59 23:59 Intake Total 1255.83 / 1255.83 3326.26 / 3576.26 2336.66 / 2336.66 Output Total 700 / 700 800 / 800 Balance 1255.83 / 955.83 2626.26 / 2876.26 1536.66 / 1536.66 General: Alert, Oriented x3, Cooperative, No apparent distress HEENT: Atraumatic Lungs: Normal air movement Cardiovascular: Regular rate Abdomen: Soft, Non Tender, Non-Distended, - - End ileostomy pink, small bowel contents in bag no signs of blood Extremities: No clubbing, No cyanosis, No edema Neurological: Cranial nerves II-XII grossly intact Psych/Mental Status: Normal Affect Microbiology Past 72 Hours 04/22/20 10:40 Stool Stool Occult Blood (MARIA TERESA) - Final Occult Blood Positive 04/20/20 23:35 Stool Enteric Bacteriology - Final 04/20/20 23:35 Stool C. difficile DNA Amplification - Final Laboratory Results 04/22/20 05:12: WBC 6.9, RBC 3.01 L, Hgb 8.5 L, Hct 27.9 L, MCV 92.7, MCH 28.2, MCHC 30.5 L, RDW Std Deviation 48.7 H, RDW Coeff of Gulshan 14.6, Plt Count 332, MPV 9.5, Immature Gran % (Auto) 3.500 H, Neut % (Auto) 70.9 H, Lymph % (Auto) 14.4 L, Emanuel % (Auto) 9.9, Eos % (Auto) 1.0, Baso % (Auto) 0.3, Absolute Neuts (auto) 4.9, Absolute Lymphs (auto) 1.00, Nucleated RBC % 0 04/22/20 05:12: Sodium 134 L, Potassium 4.0, Chloride 104, Carbon Dioxide 25.0, Anion Gap 5, BUN 23 H, Creatinine 1.15 H, Estim Creat Clear Calc 43.89, Est GFR (MDRD) Af Amer 61, Est GFR (MDRD) Non-Af 50 L, BUN/Creatinine Ratio 20.0, Glucose 89, Calcium 8.1 L, Magnesium 1.8 04/22/20 05:12: Iron 25 L, TIBC 220 L, Iron Saturation 11.4 L, Ferritin 467 H Current Medications Acetaminophen (Tylenol) 650 mg PO Q6H PRN PRN PRN Reason: Pain Score 1-10/Temp > 100.7 F Atorvastatin Calcium (Lipitor) 20 mg PO DAILY@2200 [facility] Last Admin: 04/22/20 21:06 Dose: 20 mg Documented by: Escitalopram Oxalate (Lexapro) 20 mg PO DAILY [facility] Last Admin: 04/22/20 09:35 Dose: 20 mg Documented by: Pantoprazole Sodium 40 mg/ (Sodium Chloride) 110 mls @ 330 mls/hr IV Q12 [facility] Last Infusion: 04/22/20 21:31 Dose: Infused Documented by: Sodium Chloride () 250 mls @ 15 mls/hr IV .[id number] PRN PRN Reason: Saline Flush Metoprolol Tartrate (Lopressor (Beta Corinne)) 25 mg PO BID [facility] Last Admin: 04/22/20 21:06 Dose: 25 mg Documented by: Nutritional Formula (Lactose Free) (Ensure Enlive) 120 ml PO 4X/DAY [facility] Last Admin: 04/22/20 21:05 Dose: Not Given Documented by: Ondansetron HCl (Zofran) 4 mg IV Q8H PRN PRN PRN Reason: NAUSEA/VOMITING Sodium Chloride () 10 - 40 ml IV UD PRN PRN Reason: SALINE FLUSH Last Admin: 04/22/20 21:12 Dose: 10 ml Documented by: Zolpidem Tartrate (Ambien (Generic)) 5 mg PO QHS PRN PRN PRN Reason: INSOMNIA Assessment/Plan All Active Problems Acute kidney injury (Acute) Hyponatremia (Acute) 65-year-old female initially admitted for acute kidney injury also found to have anemia and positive fecal occult blood from her end ileostomy 1. I have discussed the above with the patient. I have offered the patient EGD for evaluation. I have explained the risks/benefits of the procedure and described the procedure. I have discussed the risks with the patient, including but not limited to: infection, bleeding, perforation of the GI tract requiring emergency surgery, inability to complete the procedure, injury to any internal organs, complications of anesthesia, etc. - the patient understands and agrees to proceed. I have answered all the patient's questions to the patient's satisfaction and the patient has no further questions. 2. Continue IV Protonix Zaynab Du M.D. Pager: [phone] [facility] [address] [place] [address], [address] [place] [address] Office: [phone] Procedure Criteria Procedure Type: Essential Procedure Essential: Yes Criteria Statement: On 02/07/2020 the [place] Department of Health ([facility]) Public Order signed by [facility] Director Virginie Omalley M.D., regarding the Management of Non-Essential Surgeries and Procedures for the purpose of preserving Personal Protective Equipment (PPE) and critical hospital capacity and resources within [place] went into effect as of 02/08/2020 at 5:00PM. According to the [facility] Public Order: This action will remain in full force and effect until the State of Emergency declared by the Governor no longer exists or the Director of the [facility] rescinds or modifies this Order. This [facility] order stated all non-essential or elective surgeries and procedures that utilize PPE should be delayed unless there is undue risk to the current or future health of a patient. After reviewing the aforementioned [facility] Public Order and the patient's clinical case, I have determined that the scheduled procedure meets the criteria to go forward. Risk to Patient if Procedure Delayed: Threat to patient's life if surgery or procedure is delayed Inpatient E&M: 32892 Init Hosp L2
[2020-04-23] VITALS (14 sets, daily range): BP systolic 92–113; BP diastolic 45–56; PULSE 86–98; RESP 16–18; TEMP 36.6–37.1; O2SAT 93–100; BMI 26.0
--- NOTE | 2020-04-23 | GASB_PTH ---
PATIENT: RICHELLE NICHOLS LOC: MS3 U#:[id number] AGE/SX: 65/F [place] [facility] [place]: Dr. Roe Macdonald MD : 1955 BED: 1 DIS: 04/23/2020 SPEC #: [id number] RECD: 04/23/20 12:14 STATUS: NANCY REQ #: [id number] JUSTUS: 04/23/20 00:[address]: Zaynab Du DEPT: SURGICAL PATHOLOGY RECD BY: Segundo Simpson ENTERED: 04/23/20 12:14 SP TYPE: Gastric Bx OTHR DR: MD Dr. Roe Wiley MD Dr. Ghasem E Ashelfah, MD Dr. Tamera Robotham, MD Tissues: A - Gastric mucous membrane B - Gastric mucous membrane Procedures: Special Stain Group II Surgery Specimen Level IV Alcian Blue/PAS (control) Comments: @ Ordering doctor for SUIV edited from to @ by ROSA at 04/23/20 1243 @ Submitting doctor edited from to @ by RGOOD at 04/23/20 1243 HEADER OPERATION: EGD ([facility] [place] PRE-OP DIAGNOSIS: Anemia, positive fecal occult blood TISSUE SUBMITTED: A - Antrum biopsy for histo and H. pylori, B - EG junction biopsy MICROSCOPIC DIAGNOSIS A. Gastric antrum, biopsy: Chronic gastritis. See comment. B. Gastroesophageal junction, biopsy: Gastric mucosa with chronic inflammation. See comment. AM:mackenzie 04/24/20 COMMENT A. The results of immunohistochemistry for Helicobacter pylori will be reported separately ([id number]). B. Squamous mucosa is not represented in the biopsy. Clinical correlation is suggested. Alcian blue/PAS stain with matched control supports the above diagnosis. MICROSCOPIC DESCRIPTION Slides are reviewed. GROSS DESCRIPTION A - Received in fixative is one container labeled with the patient's name and designated antrum biopsy. The specimen consists of one irregular fragment of light lakhani soft tissue that measures 0.3 x 0.2 x 0.1 cm. The specimen is totally submitted in one cassette. B - Received in fixative is one container labeled with the patient's name and designated GE junction biopsy. The specimen consists of one irregular fragment of light lakhani soft tissue that measures 0.6 x 0.3 x 0.1 cm. The specimen is totally submitted in one cassette. / AM:mackenzie 04/23/20 TC:3 CPT: 10211 x2, 53892
[2020-04-23 06:16] LABS: Absolute Lymphocyte Count 1.21 X10^3/uL (0.83-4.51); Absolute Neutrophil Count 4.5 X10^3/uL (2.0-7.7); Basophil# 0.03 X10^3/uL; Basophil% 0.4 % (0-1); Eosinophil# 0.09 X10^3/uL; Eosinophils% 1.3 % (0-5); Hematocrit 27.7 % (37-47); Hemoglobin 8.4 g/dL (12.0-15.0); Lymphocyte # 1.21 X10^3/ul (4.0); Lymphocyte % 17.8 % (19-41); Mean Corp Hgb Conc 30.3 g/dL (32-36); Mean Corpuscular Hgb 28.1 pg (27.0-32.0); Mean Corpuscular Volume 92.6 fL (81-99); Mean Platelet Vol. 9.1 fl (6.2-12.0); Monocyte# 0.71 X10^3/uL; Monocyte% 10.5 % (0-10); NRBC Flagged by Analyzer 0 % (0-5); Neutrophil # 4.47 X10^3/uL (2.7-7.7); Neutrophil % 65.9 % (47-70); Platelet Count 311 K/mm3 (150-450); RBC Distribution Width CV 14.8 % (11.6-14.6); RBC Distribution Width SD 49.7 fl (35.1-43.9); Red Blood Count 2.99 M/mm3 (4.2-5.4); White Blood Count 6.8 K/mm3 (4.4-11.0)
[2020-04-23 06:40] LABS: Anion Gap 5 (5-15); BUN 17 mg/dL (7-18); BUN/Creat Ratio 14.4 RATIO (10-20); Calcium,Total 8.1 mg/dL (8.5-10.1); Chloride 106 mmol/L (98-107); Creatinine, Serum 1.18 mg/dL (0.55-1.02); EST Glomerular Filtration Rate 49 mL/min (>60); Est Glom Filt Rate - Afr Amer 59 mL/min (>60); Estimated Creatinine Clearance 42.77 ml/min; Glucose 89 mg/dL (74-106); Potassium 4.4 mmol/L (3.5-5.1); Sodium Level 138 mmol/L (136-145)
--- NOTE | 2020-04-23 07:24 | PN_ITS ---
Patient Problems: Active and Suspected Problems Acute kidney injury (Acute) Hyponatremia (Acute) Reason for Visit: Acute kidney injury Subjective: Patient is a 65-year-old lady admitted with palpitations and generalized weakness. Patient was found to have acute kidney injury. She was also found to have positive fecal occult blood from her end ileostomy consult placed to general surgery patient scheduled to undergo EGD Objective: GENERAL: cooperative HEENT: Atraumatic; EYES; Anicteric, Normal Conjunctiva NECK; supple, normal thyroid, RESPIRATORY: Diminished to auscultation CARDIOVASCULAR: Regular S1 S2, GI: soft, normoactive bowel sounds, : No Renal angle tenderness; EXTREMITIES: No edema, no clubbing, MUSCULOSKELETAL: no muscle waisting NEURO: Awake; no lateralizing signs. SKIN: No Rash PSYCH; Flat affect Vitals/I&O's: Vital Signs Temp Pulse Resp BP Pulse Ox 98.3 F 86 16 101/51 L 96 04/23/20 02:38 04/23/20 03:59 04/23/20 02:38 04/23/20 02:38 04/23/20 02:38 Oxygen Delivery Method Room Air Weight: 70.987 kg Body Mass Index (BMI) 26.0 Intake and Output for Last 24 Hours 04/21/20 04/22/20 04/23/20 23:59 23:59 23:59 Intake Total 3326.26 / 3576.26 2336.66 / 2536.66 450 / 450 Output Total 700 / 700 800 / 800 Balance 2626.26 / 2876.26 1536.66 / 1736.66 450 / 450 Microbiology Past 72 Hours 04/22/20 10:40 Stool Stool Occult Blood (MARIA TERESA) - Final Occult Blood Positive 04/20/20 23:35 Stool Enteric Bacteriology - Final 04/20/20 23:35 Stool C. difficile DNA Amplification - Final Laboratory Results 04/22/20 05:12: Iron 25 L, TIBC 220 L, Iron Saturation 11.4 L, Ferritin 467 H 04/23/20 05:00: COVID-19 (TRACEY) Cancelled 04/23/20 06:05: WBC 6.8, RBC 2.99 L, Hgb 8.4 L, Hct 27.7 L, MCV 92.6, MCH 28.1, MCHC 30.3 L, RDW Std Deviation 49.7 H, RDW Coeff of Gulshan 14.8 H, Plt Count 311, MPV 9.1, Immature Gran % (Auto) 4.100 H, Neut % (Auto) 65.9, Lymph % (Auto) 17.8 L, Nicholas % (Auto) 10.5 H, Eos % (Auto) 1.3, Baso % (Auto) 0.4, Absolute Neuts (auto) 4.5, Absolute Lymphs (auto) 1.21, Nucleated RBC % 0 04/23/20 06:05: Sodium 138, Potassium 4.4, Chloride 106, Carbon Dioxide 27.0, Anion Gap 5, BUN 17, Creatinine 1.18 H, Estim Creat Clear Calc 42.77, Est GFR (MDRD) Af Amer 59 L, Est GFR (MDRD) Non-Af 49 L, BUN/Creatinine Ratio 14.4, Glucose 89, Calcium 8.1 L Current Medications Acetaminophen (Tylenol) 650 mg PO Q6H PRN PRN PRN Reason: Pain Score 1-10/Temp > 100.7 F Atorvastatin Calcium (Lipitor) 20 mg PO DAILY@2200 [facility] Last Admin: 04/22/20 21:06 Dose: 20 mg Documented by: Escitalopram Oxalate (Lexapro) 20 mg PO DAILY [facility] Last Admin: 04/22/20 09:35 Dose: 20 mg Documented by: Pantoprazole Sodium 40 mg/ (Sodium Chloride) 110 mls @ 330 mls/hr IV Q12 [facility] Last Infusion: 04/22/20 21:31 Dose: Infused Documented by: Sodium Chloride () 250 mls @ 15 mls/hr IV .[id number] PRN PRN Reason: Saline Flush Metoprolol Tartrate (Lopressor (Beta Corinne)) 25 mg PO BID [facility] Last Admin: 04/22/20 21:06 Dose: 25 mg Documented by: Nutritional Formula (Lactose Free) (Ensure Enlive) 120 ml PO 4X/DAY [facility] Last Admin: 04/22/20 21:05 Dose: Not Given Documented by: Ondansetron HCl (Zofran) 4 mg IV Q8H PRN PRN PRN Reason: NAUSEA/VOMITING Sodium Chloride () 10 - 40 ml IV UD PRN PRN Reason: SALINE FLUSH Last Admin: 04/22/20 21:53 Dose: 10 ml Documented by: Zolpidem Tartrate (Ambien (Generic)) 5 mg PO QHS PRN PRN PRN Reason: INSOMNIA STROKE Vital Signs/Narrative: Vital Signs Pulse 04/23/20 03:59 86 Medical Necessity - Tobacco Use Smoking Status: Former smoker Tobacco Use: Cigarettes Assessment/Plan All Active Problems Acute kidney injury (Acute) Hyponatremia (Acute) Patient is a 65-year-old lady admitted with palpitations and generalized weakness. Patient was found to have acute kidney injury. She was also found to have positive fecal occult blood from her end ileostomy consult placed to general surgery patient scheduled to undergo EGD 1. Acute kidney injury Attributed to dehydration and poor oral intake. Admitted to regular nursing floor managed with IV fluids TOMAS resolved 2. Anemia secondary to anemia of chronic disorder Patient has history of end ileostomy following treatment for her colon CA. Patient was found to have positive fecal occult blood. General surgery consulted patient scheduled to undergo EGD this morning 3. Hyponatremia ?Secondary to hypovolemic hyponatremia: Resolved with IV hydration 4. Hypokalemia corrected per protocol 5. History of colon cancer ?Status post colectomy with subsequent end ileostomy 6. Hypertension - Blood pressure controlled, home medications continued with dose adjustment as needed 7. Dyslipidemia -Patient is on statin therapy, continued at home dose 8. Depression ?Patient is on SSRI 9. DVT prophylaxis ?Avoided the use of chemoprophylaxis in view of patient anemia suspected GI bleed Active Medications Acetaminophen (Tylenol) 650 mg PO Q6H PRN PRN PRN Reason: Pain Score 1-10/Temp > 100.7 F Atorvastatin Calcium (Lipitor) 20 mg PO DAILY@2200 [facility] Last Admin: 04/22/20 21:06 Dose: 20 mg Documented by: Escitalopram Oxalate (Lexapro) 20 mg PO DAILY [facility] Last Admin: 04/22/20 09:35 Dose: 20 mg Documented by: Pantoprazole Sodium 40 mg/ (Sodium Chloride) 110 mls @ 330 mls/hr IV Q12 [facility] Last Admin: 04/23/20 08:38 Dose: 330 mls/hr Documented by: Sodium Chloride () 250 mls @ 15 mls/hr IV .[id number] PRN PRN Reason: Saline Flush Metoprolol Tartrate (Lopressor (Beta Corinne)) 25 mg PO BID [facility] Last Admin: 04/22/20 21:06 Dose: 25 mg Documented by: Nutritional Formula (Lactose Free) (Ensure Enlive) 120 ml PO 4X/DAY [facility] Last Admin: 04/22/20 21:05 Dose: Not Given Documented by: Ondansetron HCl (Zofran) 4 mg IV Q8H PRN PRN PRN Reason: NAUSEA/VOMITING Sodium Chloride () 10 - 40 ml IV UD PRN PRN Reason: SALINE FLUSH Last Admin: 04/22/20 21:53 Dose: 10 ml Documented by: Zolpidem Tartrate (Ambien (Generic)) 5 mg PO QHS PRN PRN PRN Reason: INSOMNIA Inpatient E&M: 51080 Subs Hosp L2
--- NOTE | 2020-04-23 09:20 | PN.SURG_ITS ---
Patient Problems: Active and Suspected Problems Acute kidney injury (Acute) Hyponatremia (Acute) Subjective: Patient denies any abdominal pain, end ileostomy is still not having any obvious bloody output - Physical Exam Vitals/I&O's: Vital Signs Temp Pulse Resp BP Pulse Ox 98.3 F 86 16 101/51 L 93 04/23/20 02:38 04/23/20 03:59 04/23/20 02:38 04/23/20 02:38 04/23/20 07:37 Oxygen Delivery Method Room Air Weight: 156 lb 7.993 oz Body Mass Index (BMI) 26.0 Intake and Output for Last 24 Hours 04/21/20 04/22/20 04/23/20 23:59 23:59 23:59 Intake Total 3326.26 / 3576.26 2336.66 / 2536.66 450 / 450 Output Total 700 / 700 800 / 800 Balance 2626.26 / 2876.26 1536.66 / 1736.66 450 / 450 General: Alert, Oriented x3, Cooperative, No apparent distress HEENT: Atraumatic Lungs: Normal air movement Cardiovascular: Regular rate Abdomen: Soft, Non Tender, Non-Distended Extremities: No clubbing, No cyanosis, No edema Neurological: Cranial nerves II-XII grossly intact Psych/Mental Status: Normal Affect Microbiology Past 72 Hours 04/23/20 05:00 Mucosa - Nasopharyngeal Coronavirus COVID-19 PCR - Final 04/22/20 10:40 Stool Stool Occult Blood (MARIA TERESA) - Final Occult Blood Positive 04/20/20 23:35 Stool Enteric Bacteriology - Final 04/20/20 23:35 Stool C. difficile DNA Amplification - Final Laboratory Results 04/22/20 05:12: Iron 25 L, TIBC 220 L, Iron Saturation 11.4 L, Ferritin 467 H 04/23/20 05:00: COVID-19 (TRACEY) Cancelled 04/23/20 06:05: WBC 6.8, RBC 2.99 L, Hgb 8.4 L, Hct 27.7 L, MCV 92.6, MCH 28.1, MCHC 30.3 L, RDW Std Deviation 49.7 H, RDW Coeff of Gulshan 14.8 H, Plt Count 311, MPV 9.1, Immature Gran % (Auto) 4.100 H, Neut % (Auto) 65.9, Lymph % (Auto) 17.8 L, [place] % (Auto) 10.5 H, Eos % (Auto) 1.3, Baso % (Auto) 0.4, Absolute Neuts (auto) 4.5, Absolute Lymphs (auto) 1.21, Nucleated RBC % 0 04/23/20 06:05: Sodium 138, Potassium 4.4, Chloride 106, Carbon Dioxide 27.0, Anion Gap 5, BUN 17, Creatinine 1.18 H, Estim Creat Clear Calc 42.77, Est GFR (MDRD) Af Amer 59 L, Est GFR (MDRD) Non-Af 49 L, BUN/Creatinine Ratio 14.4, Glucose 89, Calcium 8.1 L Current Medications Acetaminophen (Tylenol) 650 mg PO Q6H PRN PRN PRN Reason: Pain Score 1-10/Temp > 100.7 F Atorvastatin Calcium (Lipitor) 20 mg PO DAILY@2200 [facility] Last Admin: 04/22/20 21:06 Dose: 20 mg Documented by: Escitalopram Oxalate (Lexapro) 20 mg PO DAILY [facility] Last Admin: 04/22/20 09:35 Dose: 20 mg Documented by: Pantoprazole Sodium 40 mg/ (Sodium Chloride) 110 mls @ 330 mls/hr IV Q12 [facility] Last Admin: 04/23/20 08:38 Dose: 330 mls/hr Documented by: Sodium Chloride () 250 mls @ 15 mls/hr IV .[id number] PRN PRN Reason: Saline Flush Metoprolol Tartrate (Lopressor (Beta Corinne)) 25 mg PO BID [facility] Last Admin: 04/22/20 21:06 Dose: 25 mg Documented by: Nutritional Formula (Lactose Free) (Ensure Enlive) 120 ml PO 4X/DAY [facility] Last Admin: 04/22/20 21:05 Dose: Not Given Documented by: Ondansetron HCl (Zofran) 4 mg IV Q8H PRN PRN PRN Reason: NAUSEA/VOMITING Sodium Chloride () 10 - 40 ml IV UD PRN PRN Reason: SALINE FLUSH Last Admin: 04/22/20 21:53 Dose: 10 ml Documented by: Zolpidem Tartrate (Ambien (Generic)) 5 mg PO QHS PRN PRN PRN Reason: INSOMNIA Medical Necessity - Tobacco Use Smoking Status: Former smoker Tobacco Use: Cigarettes Assessment/Plan All Active Problems Acute kidney injury (Acute) Hyponatremia (Acute) 65-year-old female initially admitted for acute kidney injury also found to have anemia and positive fecal occult blood from her end ileostomy 1. EGD this morning about 1045 2. Continue IV Protonix Zaynab Du M.D. Pager: [phone] [facility] [address] [place] [address], [facility], [address] [place] [address] Office: [phone]
--- NOTE | 2020-04-23 09:59 | NURSING ---
pt off unit for procedure.
--- NOTE | 2020-04-23 10:50 | IMM_PTH ---
PATIENT: RICHELLE NICHOLS LOC: MS3 U#:[id number] AGE/SX: 65/F ROOM: [facility] [place] RE04/20/[address]: Dr. Roe Macdonald MD : 1955 BED: 1 DIS: 04/23/2020 SPEC #: [id number] RECD: 04/23/20 12:46 STATUS: SOUT REQ #: [id number] JUSTUS: 04/23/20 10:[address]: Zaynab Du DEPT: IMMUNOHISTOCHEMISTRY RECD BY: Alisha Zuleta ENTERED: 04/23/20 12:46 SP TYPE: IMMUNO OTHR DR: MD Dr. Roe Wiley MD Dr. Ghasem E Ashelfah, MD Tissues: A - Stomach, NOS Procedures: H Pylori (initial) PHYSICIAN & INSTITUTION [place] [id number] SPECIMEN INFORMATION: Tissue Source: A - Antrum biopsy Clinical Info: Anemia; positive fecal occult blood Specimen Number: [id number] CPT code: 17696 METHODOLOGY: Deparaffinized sections of prefer/formalin-fixed tissue or PAP/DQ stained slides are incubated with monoclonal/polyclonal antibodies/oligonucleotide probes. Localization is made via biotin free immunoperoxidase method. Appropriate controls are performed and reacted as expected. Results on target cell population are indicated in the following table: RESULTS: ANTIBODY / CLONE RESULT Block A H Pylori (polyclonal) negative These tests were developed and their performance characteristics determined by [facility]. They may not have been cleared or approved by the U.S. Food and Drug Administration. The FDA has determined that such clearance or approval is not necessary. INTERPRETATION: A. Antrum, biopsy: Negative for Helicobacter pylori organisms. AM:mackenzie 04/25/20
--- NOTE | 2020-04-23 11:05 | OP.CCLET_ITS ---
04/23/2020 Virginie Mazar[address]os [address] [place] [address] Re : Upper GI endoscopy procedure for Fang Sandoval Dear Dr. Mazariegos This procedure was performed on Thursday, April 23, 2020. My impressions and recommendations are as follows: Impressions : - Z-line variable, 38 cm from the incisors. Biopsied. - Small hiatal hernia. - Erythematous mucosa in the antrum. Biopsied. - Normal examined duodenum. - Erythematous mucosa in the gastric body. Recommendations : - Await pathology results. - [facility]. - Resume previous diet. - Use Protonix (pantoprazole) 40 mg PO daily. - Continue present medications. My findings are described in the full procedure note, which is enclosed. If I can be of further assistance, please feel free to contact me at Doctor phone number(s): , Work: . Sincerely, MD Zaynab Tejada MD 04/23/2020 11:05:29 AM This report has been signed electronically.
--- NOTE | 2020-04-23 11:05 | OP.EGD_ITS ---
Patient Name: Fang Sandoval Procedure Date: 04/23/2020 10:33 AM Date of : 1955 Age: 65 Procedure: Upper GI endoscopy Indications: Iron deficiency anemia, Heme positive stool Providers: Zaynab Du MD Medicines: Monitored Anesthesia Care Patient Profile: This is a 65 year old female. Complications: No immediate complications. Procedure: Pre-Anesthesia Assessment: - Prior to the procedure, a History and Physical was performed, and patient medications and allergies were reviewed. The patient's tolerance of previous anesthesia was also reviewed. The risks and benefits of the procedure and the sedation options and risks were discussed with the patient. All questions were answered, and informed consent was obtained. Prior Anticoagulants: The patient has taken no previous anticoagulant or antiplatelet agents. ASA Grade Assessment: Per anesthesia. After reviewing the risks and benefits, the patient was deemed in satisfactory condition to undergo the procedure. After obtaining informed consent, the endoscope was passed under direct vision. Throughout the procedure, the patient's blood pressure, pulse, and oxygen saturations were monitored continuously. The gastroscope was introduced through the mouth, and advanced to the second part of duodenum. The upper GI endoscopy was accomplished without difficulty. The patient tolerated the procedure well. Scope In: 10:45:48 AM Scope Out: 10:53:37 AM Total Procedure Duration Time 0 hours 7 minutes 49 seconds Findings: The Z-line was variable and was found 38 cm from the incisors. Biopsies were taken with a cold forceps for histology. A small hiatal hernia was present. Mildly erythematous mucosa without bleeding was found in the gastric antrum. Biopsies were taken with a cold forceps for histology. Biopsies were taken with a cold forceps for Helicobacter pylori cultures. The examined duodenum was normal. Diffuse mildly erythematous mucosa without bleeding was found in the gastric body. Impression: - Z-line variable, 38 cm from the incisors. Biopsied. - Small hiatal hernia. - Erythematous mucosa in the antrum. Biopsied. - Normal examined duodenum. - Erythematous mucosa in the gastric body. Recommendation: - Await pathology results. - [facility]. - Resume previous diet. - Use Protonix (pantoprazole) 40 mg PO daily. - Continue present medications. Procedure Code(s): --- Professional --- 27761, Esophagogastroduodenoscopy, flexible, transoral; with biopsy, single or multiple Diagnosis Code(s): --- Professional --- K22.8, Other specified diseases of esophagus K44.9, Diaphragmatic hernia without obstruction or gangrene K31.89, Other diseases of stomach and duodenum D50.9, Iron deficiency anemia, unspecified R19.5, Other fecal abnormalities CPT copyright 2017 [employer] [employer]. All rights reserved. The codes documented in this report are preliminary and upon inpatient coder review may be revised to meet current compliance requirements. MD Zaynab Tejada MD 04/23/2020 11:05:29 AM This report has been signed electronically. Number of Addenda: 0 Note Initiated On: 04/23/2020 10:33 AM
[2020-04-23 11:54] LABS: Pathologist Review Reviewed
--- NOTE | 2020-04-23 11:56 | PCM.DC ---
- Discharge Diagnoses Current Active Problems: Current Active and Chronic Problems Acute kidney injury (Acute) Hyponatremia (Acute) You will use the following diet at home:: No restrictions Your food should be the consistency of: Regular Allergies/Adverse Reactions: Allergies No Known Allergies Allergy (Verified 04/20/20 18:53) Medications to take at Discharge Alendronate Sodium 70 mg PO WE 04/20/20 Atorvastatin Calcium 20 mg PO DAILY 04/20/20 Escitalopram Oxalate 20 mg PO DAILY 04/20/20 Metoprolol Tartrate 25 mg PO BID 04/20/20 Pantoprazole Sodium [Protonix] 40 mg PO DAILY #30 tab 04/23/20 The following prescriptions were given: Pantoprazole Sodium [Protonix] 40 mg PO DAILY #30 tab Transmission Status: Received by [facility] Primary Care Physician: Virginie Mazariegos MD [Primary Care Provider] - Please follow up with your Primary Care Physician in: Patient to call PCP for follow-up appointment Test Results: Test results from this visit will be discussed in further detail at your follow-up appointment, if applicable. Proposed Discharge Date: 04/23/20
--- NOTE | 2020-04-23 11:58 | DS.PCM_ITS ---
Discharge Date and Diagnosis - Problem List Patient Problems: Active and Suspected Problems Acute kidney injury (Acute) Hyponatremia (Acute) Date of Admission: 04/20/20 Date of Discharge: 04/23/20 - Primary Discharge Diagnosis Acute Problems: Active Problems Acute kidney injury (Acute) Hyponatremia (Acute) - Secondary Discharge Diagnosis Chronic Problems: Chronic Problems History of colon cancer (Chronic) Depression (Chronic) GERD (gastroesophageal reflux disease) (Chronic) Hyperlipidemia (Chronic) Hypertension (Chronic) Hospital Course and Treatment Summary of Care Provided: Patient is a 65-year-old lady admitted with palpitations and generalized weakness. Patient was found to have acute kidney injury. She was also found to have positive fecal occult blood from her end ileostomy consult placed to general surgery 1. Acute kidney injury Attributed to dehydration and poor oral intake. Admitted to regular nursing floor managed with IV fluids TOMAS resolved 2. Anemia secondary to anemia of chronic disorder Patient has history of end ileostomy following treatment for her colon CA. Patient was found to have positive fecal occult blood. General surgery consulted patient underwent EGD performed by Dr. Jimenez on 04/23/2020 which demonstrated erythematous mucosa in the antrum and normal duodenum as well as erythematous mucosa in the gastric body biopsies were taken. Discharged home on PPI 3. Hyponatremia ?Secondary to hypovolemic hyponatremia: Resolved with IV hydration 4. Hypokalemia corrected per protocol 5. History of colon cancer ?Status post colectomy with subsequent end ileostomy 6. Hypertension - Blood pressure controlled, home medications continued with dose adjustment as needed 7. Dyslipidemia -Patient is on statin therapy, continued at home dose 8. Depression ?Patient is on SSRI 9. DVT prophylaxis ?Avoided the use of chemoprophylaxis in view of patient anemia suspected GI bleed Patient Problems: Active and Suspected Problems Acute kidney injury (Acute) Hyponatremia (Acute) Objective: GENERAL: cooperative HEENT: Atraumatic; EYES; Anicteric, Normal Conjunctiva NECK; supple, normal thyroid, RESPIRATORY: Diminished to auscultation CARDIOVASCULAR: Regular S1 S2, GI: soft, normoactive bowel sounds, : No Renal angle tenderness; EXTREMITIES: No edema, no clubbing, MUSCULOSKELETAL: no muscle waisting NEURO: Awake; no lateralizing signs. SKIN: No Rash PSYCH; Flat affect - Physical Exam Vitals/I&O's: Vital Signs Temp Pulse Resp BP Pulse Ox 98.7 F 92 16 102/45 L 96 06/01/20 11:22 04/23/20 11:22 04/23/20 11:22 04/23/20 11:22 04/23/20 11:22 Oxygen Delivery Method Room Air Weight: 70.98 kg Body Mass Index (BMI) 26.0 Intake and Output for Last 24 Hours 04/21/20 04/22/20 04/23/20 23:59 23:59 23:59 Intake Total 3326.26 / 3576.26 2336.66 / 2536.66 1560 / 1560 Output Total 700 / 700 800 / 800 Balance 2626.26 / 2876.26 1536.66 / 1736.66 1560 / 1560 Microbiology Past 72 Hours 04/23/20 05:00 Mucosa - Nasopharyngeal Coronavirus COVID-19 PCR - Final 04/22/20 10:40 Stool Stool Occult Blood (MARIA TERESA) - Final Occult Blood Positive 04/20/20 23:35 Stool Enteric Bacteriology - Final 04/20/20 23:35 Stool C. difficile DNA Amplification - Final Laboratory Results 04/20/20 19:12: Diff Path Review Reviewed 04/23/20 05:00: COVID-19 (TRACEY) Cancelled 04/23/20 06:05: WBC 6.8, RBC 2.99 L, Hgb 8.4 L, Hct 27.7 L, MCV 92.6, MCH 28.1, MCHC 30.3 L, RDW Std Deviation 49.7 H, RDW Coeff of Gulshan 14.8 H, Plt Count 311, MPV 9.1, Immature Gran % (Auto) 4.100 H, Neut % (Auto) 65.9, Lymph % (Auto) 17.8 L, [place] % (Auto) 10.5 H, Eos % (Auto) 1.3, Baso % (Auto) 0.4, Absolute Neuts (auto) 4.5, Absolute Lymphs (auto) 1.21, Nucleated RBC % 0 04/23/20 06:05: Sodium 138, Potassium 4.4, Chloride 106, Carbon Dioxide 27.0, Anion Gap 5, BUN 17, Creatinine 1.18 H, Estim Creat Clear Calc 42.77, Est GFR (MDRD) Af Amer 59 L, Est GFR (MDRD) Non-Af 49 L, BUN/Creatinine Ratio 14.4, Glucose 89, Calcium 8.1 L Current Medications Acetaminophen (Tylenol) 650 mg PO Q6H PRN PRN PRN Reason: Pain Score 1-10/Temp > 100.7 F Atorvastatin Calcium (Lipitor) 20 mg PO DAILY@2200 [facility] Last Admin: 04/22/20 21:06 Dose: 20 mg Documented by: Escitalopram Oxalate (Lexapro) 20 mg PO DAILY [facility] Last Admin: 04/22/20 09:35 Dose: 20 mg Documented by: Pantoprazole Sodium 40 mg/ (Sodium Chloride) 110 mls @ 330 mls/hr IV Q12 [facility] Last Infusion: 04/23/20 08:58 Dose: Infused Documented by: Sodium Chloride () 250 mls @ 15 mls/hr IV .[id number] PRN PRN Reason: Saline Flush Metoprolol Tartrate (Lopressor (Beta Corinne)) 25 mg PO BID [facility] Last Admin: 04/22/20 21:06 Dose: 25 mg Documented by: Nutritional Formula (Lactose Free) (Ensure Enlive) 120 ml PO 4X/DAY [facility] Last Admin: 04/22/20 21:05 Dose: Not Given Documented by: Ondansetron HCl (Zofran) 4 mg IV Q8H PRN PRN PRN Reason: NAUSEA/VOMITING Sodium Chloride () 10 - 40 ml IV UD PRN PRN Reason: SALINE FLUSH Last Admin: 04/22/20 21:53 Dose: 10 ml Documented by: Zolpidem Tartrate (Ambien (Generic)) 5 mg PO QHS PRN PRN PRN Reason: INSOMNIA Discharge Diet: No Restrictions Home Medications: Medications to take at Discharge Alendronate Sodium 70 mg PO WE 04/20/20 Atorvastatin Calcium 20 mg PO DAILY 04/20/20 Escitalopram Oxalate 20 mg PO DAILY 04/20/20 Metoprolol Tartrate 25 mg PO BID 04/20/20 Pantoprazole Sodium [Protonix] 40 mg PO DAILY #30 tab 04/23/20 Following Prescrptions Were Given to Patient: Pantoprazole Sodium [Protonix] 40 mg PO DAILY #30 tab Transmission Status: Received by [facility] Primary Care Physician: Virginie Mazariegos MD [Primary Care Provider] - Please follow up with your Primary Care Physician in: Patient to call PCP for follow-up appointment Disposition: Home Minutes spent on discharge:: 35 Patient Condition:: Stable Medical Necessity - Tobacco Use Smoking Status: Former smoker Tobacco Use: Cigarettes Meaningful Use Info Meaningful Use Diagnoses (Choose all that apply): None applicable Inpatient E&M: 50497 Disch Hosp
[2020-04-23] MEDS: Escitalopram Oxalate 20 MG Tablet PO (13:19)
[2020-04-23] MEDS: Metoprolol Tartrate 25 MG Tablet PO (13:20)
== END 2020-04-23 13:50 | disposition home or self-care (01) | DRG 683 ==
LOC: ED 20:34 → MS3 21:50
PROVIDERS: Family Medicine; Surgery; Admitting Provider Hospitalist; Emergency Provider Emergency Medicine; PCP Family Medicine; Visit Provider Internal Medicine
PROC: 0DJ08ZZ Inspection of Upper Intestinal Tract, Via Natural or Artificial Opening Endoscopic (ICD-10-PCS; CPT 43235; principal; 2020-04-23 10:45)
DX: N17.9 Acute kidney failure, unspecified (principal); E87.1 Hypo-osmolality and hyponatremia; K51.90 Ulcerative colitis, unspecified, without complications; E86.0 Dehydration; E87.6 Hypokalemia; E86.1 Hypovolemia; D50.9 Iron deficiency anemia, unspecified; D63.8 Anemia in other chronic diseases classified elsewhere; I10 Essential (primary) hypertension; E78.5 Hyperlipidemia, unspecified; K21.9 Gastro-esophageal reflux disease without esophagitis; F32.9 Major depressive disorder, single episode, unspecified; F41.9 Anxiety disorder, unspecified; Z79.899 Other long term (current) drug therapy; Z93.3 Colostomy status; Z85.038 Personal history of other malignant neoplasm of large intestine; Z87.891 Personal history of nicotine dependence; Z90.49 Acquired absence of other specified parts of digestive tract
CPT/HCPCS: 36415; 71046; 80048; 80053; 81001; 82274; 82728; 83540; 83550; 83735; 84443; 84484; 85025; 85652; 87493; 87506; 87635; 88305; 88313; 88342; 93005; 97802; 99285; G2023; J7030; J7040; J7120; A4216; J2405; U0004

== ENCOUNTER → 2020-04-30 | Outpatient (CLI) | payer MEDICARE, SELFPAY ==
[2020-04-23 09:48] VITALS: BMI 26.0
[2020-04-30 15:04] LABS: Absolute Lymphocyte Count 1.07 X10^3/uL (0.83-4.51); Absolute Neutrophil Count 10.3 X10^3/uL (2.0-7.7); Basophil# 0.05 X10^3/uL; Basophil% 0.4 % (0-1); Eosinophil# 0.06 X10^3/uL; Eosinophils% 0.5 % (0-5); Hematocrit 33.2 % (37-47); Hemoglobin 10.2 g/dL (12.0-15.0); Lymphocyte # 1.07 X10^3/ul (4.0); Lymphocyte % 8.4 % (19-41); Mean Corp Hgb Conc 30.7 g/dL (32-36); Mean Corpuscular Hgb 28.8 pg (27.0-32.0); Mean Corpuscular Volume 93.8 fL (81-99); Mean Platelet Vol. 9.2 fl (6.2-12.0); Monocyte# 1.14 X10^3/uL; NRBC Flagged by Analyzer 0 % (0-5); Neutrophil # 10.25 X10^3/uL (2.7-7.7); Neutrophil % 80.8 % (47-70); Platelet Count 453 K/mm3 (150-450); RBC Distribution Width CV 15.7 % (11.6-14.6); Red Blood Count 3.54 M/mm3 (4.2-5.4); White Blood Count 12.7 K/mm3 (4.4-11.0)
[2020-04-30 15:25] LABS: ALB/GLOB Ratio 0.5 RATIO (0.9-2.4); AST(SGOT) 11 U/L (15-37); Alanine Aminotransfer ALT/SGPT 26 U/L (13-56); Albumin, Serum 2.7 g/dL (3.2-5.0); Alkaline Phosphatase 89 U/L (45-117); Anion Gap 9 (5-15); BUN 14 mg/dL (7-18); BUN/Creat Ratio 12.6 RATIO (10-20); Calcium,Total 8.3 mg/dL (8.5-10.1); Chloride 106 mmol/L (98-107); Creatinine, Serum 1.11 mg/dL (0.55-1.02); EST Glomerular Filtration Rate 52 mL/min (>60); Est Glom Filt Rate - Afr Amer 63 mL/min (>60); Globulin 5.1 g/dL (2.2-4.2); Glucose 105 mg/dL (74-106); Protein, Total 7.8 g/dL (6.4-8.2); Sodium Level 134 mmol/L (136-145)
== END | disposition home or self-care (01) ==
LOC: MFPLAB 11:27
PROVIDERS: PCP Family Medicine; Visit Provider Family Medicine
DX: K21.9 Gastro-esophageal reflux disease without esophagitis (principal); E86.0 Dehydration
CPT/HCPCS: 36415; 80053; 85025

== ENCOUNTER → 2020-05-30 10:37 | Outpatient (CLI) | payer MEDICARE, SELFPAY ==
[2020-04-23 09:48] VITALS: BMI 26.0
[2020-05-30 12:53] LABS: Erythrocyte Sedimentation Rate 89 mm/hr (0-30)
[2020-05-30 12:56] LABS: Absolute Lymphocyte Count 0.77 X10^3/uL (0.83-4.51); Absolute Neutrophil Count 8.2 X10^3/uL (2.0-7.7); Basophil# 0.04 X10^3/uL; Basophil% 0.4 % (0-1); Eosinophil# 0.03 X10^3/uL; Eosinophils% 0.3 % (0-5); Hematocrit 31.3 % (37-47); Hemoglobin 10.3 g/dL (12.0-15.0); Lymphocyte # 0.77 X10^3/ul (4.0); Lymphocyte % 7.5 % (19-41); Mean Corp Hgb Conc 32.9 g/dL (32-36); Mean Corpuscular Volume 88.2 fL (81-99); Mean Platelet Vol. 8.9 fl (6.2-12.0); Monocyte% 8.7 % (0-10); NRBC Flagged by Analyzer 0 % (0-5); Neutrophil # 8.24 X10^3/uL (2.7-7.7); Neutrophil % 80.1 % (47-70); Platelet Count 506 K/mm3 (150-450); RBC Distribution Width CV 16.2 % (11.6-14.6); RBC Distribution Width SD 51.9 fl (35.1-43.9); Red Blood Count 3.55 M/mm3 (4.2-5.4); White Blood Count 10.3 K/mm3 (4.4-11.0)
[2020-05-30 13:42] LABS: ALB/GLOB Ratio 0.5 RATIO (0.9-2.4); AST(SGOT) 14 U/L (15-37); Alanine Aminotransfer ALT/SGPT 29 U/L (13-56); Albumin, Serum 2.8 g/dL (3.2-5.0); Alkaline Phosphatase 123 U/L (45-117); Anion Gap 12 (5-15); BUN 16 mg/dL (7-18); BUN/Creat Ratio 12.1 RATIO (10-20); Calcium,Total 8.4 mg/dL (8.5-10.1); Chloride 87 mmol/L (98-107); Creatinine, Serum 1.32 mg/dL (0.55-1.02); EST Glomerular Filtration Rate 43 mL/min (>60); Est Glom Filt Rate - Afr Amer 52 mL/min (>60); Globulin 5.1 g/dL (2.2-4.2); Glucose 115 mg/dL (74-106); Potassium 3.1 mmol/L (3.5-5.1); Protein, Total 7.9 g/dL (6.4-8.2); Sodium Level 119 mmol/L (136-145); Thyroid Stim Hormone (TSH) 3.06 uIU/mL (0.358-3.74)
== END ==
PROVIDERS: PCP Family Medicine; Visit Provider Family Medicine
DX: R06.00 Dyspnea, unspecified (principal); R63.4 Abnormal weight loss
CPT/HCPCS: 36415; 80053; 84443; 85025; 85652

== ENCOUNTER 2020-05-31 09:15 | Inpatient (IN) | payer MEDICARE, SELFPAY ==
[2020-04-23 09:48] VITALS: BMI 26.0
[2020-05-31] VITALS (7 sets, daily range): BP systolic 95–142; BP diastolic 42–95; PULSE 87–113; RESP 16–18; TEMP 36.2–37; O2SAT 98–100; BMI 24.6; BMI 24.9
--- NOTE | 2020-05-31 09:48 | ED.DCSUM_ITS ---
History of Present Illness Chief Complaint: Abn Labs Narrative: Patient presenting for evaluation secondary to abnormal labs. Patient had hyponatremia around a month and a half ago, and was getting screening labs done yesterday to check up on her renal function and electrolytes and was noted to have a sodium of 119 was recommended to come to the emergency department. Patient denies that she has had new symptoms such as cramping, no nausea vomiting. Patient does have an ileostomy she states that she has not had any increased output from that. She denies that she is on any sort of diuretics. Review of systems otherwise negative. Past Medical History - Allergies and Home Meds Allergies/Adverse Reactions: Allergies No Known Allergies Allergy (Verified 05/31/20 09:17) Primary Care Physician: Virginie Mazariegos MD [Primary Care Provider] - Prior records reviewed: Yes Past Medical History: - - Hypertension hyperlipidemia Surgical History: colectomy - Total due to UC and colon cancer, has an end ileostomy, hysterectomy Lives: Spouse/ Significant Other Smoking Status: Former smoker Alcohol: None Drugs: None - Family History Maternal Family History: Reports: No pertinent history Paternal Family History: Reports: No pertinent history Review of Systems All systems negative except as indicated General: Denies: Chills, Fever, Sweats Eyes: Denies: Visual changes - bilaterally, Diplopia ENT: Denies: Rhinorrhea, Sore throat Cardiovascular: Denies: Chest pain, Palpitations Respiratory: Denies: Dyspnea, Cough, Dyspnea on exertion Gastrointestinal: Denies: Abdominal pain, Nausea, Vomiting, Diarrhea, Melena, Hematochezia Genitourinary: Denies: Dysuria, Hematuria, Frequency Musculoskeletal: Denies: Back pain, Extremity Pain Skin: Denies: Rash, Wounds Neurological: Denies: Headache, Weakness, Numbness Physical Exam Vital Signs/Narrative: Vital Signs Temp Pulse Resp BP Pulse Ox 05/31/20 09:17 97.2 F L 113 H 17 142/95 H 98 Inital Vital Signs reviewed: Yes General: Well nourished, Well developed, No Acute Distress Head: Normocephalic, Atraumatic Eyes: Perrl, EOMI ENT: Moist mucous membranes, No rhinorrhea Neck: Supple, Nontender Cardiovascular: Regular rhythm, No murmurs, Tachycardia Respiratory: No distress, CTA bilaterally, Chest nontender Abdomen: Soft, Nontender, Nondistended, Normal bowel sounds, - - Ostomy in place Back: Nontender, Normal Inspection Extremities: Nontender, No edema Skin: Normal color, No rash Neurological: Alert, Oriented x3, Cranial nerves II-XII grossly intact, Normal Strength, Normal Sensation Psychological: Normal affect, Normal Mood Diagnostic/Tx/Re-eval Laboratory Data 05/31/20 05/31/20 05/31/20 09:45 09:45 10:03 WBC 10.5 RBC 3.71 L Hgb 10.6 L Hct 31.6 L MCV 85.2 MCH 28.6 MCHC 33.5 RDW Std Deviation 49.0 H RDW Coeff of Gulshan 15.8 H Plt Count 461 H MPV 8.9 Immature Gran % (Auto) 2.900 H Neut % (Auto) 83.6 H Lymph % (Auto) 5.6 L [place] % (Auto) 7.4 Eos % (Auto) 0.1 Baso % (Auto) 0.4 Absolute Neuts (auto) 8.8 H Absolute Lymphs (auto) 0.59 L Nucleated RBC % 0 Differential Comment SCANNED Anisocytosis [employer]OURNEY[employer] MACHINIST Microcytosis [employer]OURNEY[employer]ACHINIST Macrocytosis [employer]OURNEY[employer]ACHINIST Sodium Cancelled 120 L Potassium Cancelled 3.0 L Chloride Cancelled 89 L Carbon Dioxide Cancelled 19.0 L Anion Gap Cancelled 12 BUN Cancelled 19 H Creatinine Cancelled 1.44 H Estim Creat Clear Calc Cancelled 35.05 Est GFR (MDRD) Af Amer Cancelled 47 L Est GFR (MDRD) Non-Af Cancelled 39 L BUN/Creatinine Ratio Cancelled 13.2 Glucose Cancelled 106 Calcium Cancelled 7.7 L - Medical Decision Making Patient presented due to concern for hyponatremia. IV was established patient was started on gentle fluid resuscitation. Patient's lab work did confirm this with a sodium of 120. Patient will be admitted for further work-up and sodium replenishment ED Disposition - Plan for ED Patient: Disposition: Acute Care Hospital [facility] Diagnosis: Hyponatremia
[2020-05-31 09:50] LABS: Absolute Lymphocyte Count 0.59 X10^3/uL (0.83-4.51); Absolute Neutrophil Count 8.8 X10^3/uL (2.0-7.7); Basophil# 0.04 X10^3/uL; Basophil% 0.4 % (0-1); Eosinophil# 0.01 X10^3/uL; Eosinophils% 0.1 % (0-5); Hematocrit 31.6 % (37-47); Hemoglobin 10.6 g/dL (12.0-15.0); Lymphocyte # 0.59 X10^3/ul (4.0); Lymphocyte % 5.6 % (19-41); Mean Corp Hgb Conc 33.5 g/dL (32-36); Mean Corpuscular Hgb 28.6 pg (27.0-32.0); Mean Corpuscular Volume 85.2 fL (81-99); Mean Platelet Vol. 8.9 fl (6.2-12.0); Monocyte# 0.78 X10^3/uL; Monocyte% 7.4 % (0-10); NRBC Flagged by Analyzer 0 % (0-5); Neutrophil % 83.6 % (47-70); POSITIVE DIFFERENTIAL YES; Platelet Count 461 K/mm3 (150-450); RBC Distribution Width CV 15.8 % (11.6-14.6); Red Blood Count 3.71 M/mm3 (4.2-5.4); White Blood Count 10.5 K/mm3 (4.4-11.0)
[2020-05-31] MEDS: 0.9% Normal Saline 1,000 ML 150 ML IV (09:59)
[2020-05-31 10:01] LABS: Differential Indicated SCAN CRITERIA MET
[2020-05-31 10:03] LABS: Differential Comment SCANNED
[2020-05-31 10:36] LABS: Anion Gap 12 (5-15); BUN 19 mg/dL (7-18); BUN/Creat Ratio 13.2 RATIO (10-20); Calcium,Total 7.7 mg/dL (8.5-10.1); Chloride 89 mmol/L (98-107); Creatinine, Serum 1.44 mg/dL (0.55-1.02); EST Glomerular Filtration Rate 39 mL/min (>60); Est Glom Filt Rate - Afr Amer 47 mL/min (>60); Estimated Creatinine Clearance 35.05 ml/min; Glucose 106 mg/dL (74-106); Sodium Level 120 mmol/L (136-145)
--- NOTE | 2020-05-31 11:12 | PCM.HP.STD ---
History of Present Illness Date of Admission: 05/31/20 Chief Complaint: Sent in for Abnormal labs The patient is a 65 year old F who presented to the ED today for abn labs (hyponatremia) after seeing her PCP yesterday and having lab drawn. She was told to come in for her Na of 119. She was admitted for hyponatremia at the end of March as well and responded to IVF. Na at d/c was 137. She denies any abnormalities and is feeling well. She has an ostomy which was placed by Dr. Roberts at [facility] in for UC and states that her output from her ostomy has been stable. She does admit to poor PO liquid input at times. She is not on diuretics but is on an SSRI that she has been on for some time and would like to get off of anyway. Her VS are stable. Na on admission is 120/K is 3/Cl is 89/AG 12/HCO3 19/BUN 19 and sCr is 1.44. She was started on IVF in the ED. Past Medical History Past Medical History (Chronic Problems): Chronic Problems History of colon cancer (Chronic) Depression (Chronic) GERD (gastroesophageal reflux disease) (Chronic) Hyperlipidemia (Chronic) Hypertension (Chronic) Allergies No Known Allergies Allergy (Verified 05/31/20 09:17) Home Medications: Ambulatory Orders Medication Instructions Recorded Alendronate Sodium 70 mg PO WE 04/20/20 Atorvastatin Calcium 20 mg PO DAILY 04/20/20 Escitalopram Oxalate 20 mg PO DAILY 04/20/20 Metoprolol Tartrate 25 mg PO BID 04/20/20 Pantoprazole Sodium [Protonix] 40 mg PO DAILY #30 tab 04/23/20 Ferrous Sulfate, Dried [Iron] 65 mg PO DAILY 05/31/20 Surgical History: colectomy - Total due to UC and colon cancer, has an end ileostomy, hysterectomy Psychiatric History: Depression EMT BASIC History: No pertinent EMT BASIC history Lives: Spouse/ Significant Other Smoking Status: Former smoker Alcohol: None Drugs: None - *Family History Maternal History Items: No pertinent history Paternal History Items: No pertinent history Review of Systems Constitutional: Denies: Anorexia, Chills, Fever, Night Sweats, Malaise, Weakness, Weight Change, Fatigue Eyes: Denies: Blurred vision, Cataracts, Conjunctivae Inflammation, Double vision, Drainage, Eyelid Inflammation, Pain, Redness, Vision Change HEENT: Denies: Difficulty Hearing, Difficulty Swallowing, Dysphasia, Ear Pain, Eye Pain, Hard of Hearing, Head Aches, Hearing Changes, Nasal bleeding, Nasal Congestion, Post Nasal Drip, Sinus Congestion, Sinus Drainage, Sore Throat, Visual Changes Cardiovascular: Denies: Chest Pain, Claudication, Chest Pressure, Chest Tightness, Edema, Heaviness, Light Headedness, Orthopnea, Palpitations, Paroxysmal Noc. Dyspnea, Syncope Respiratory: Denies: Cough, Hemoptysis, Pleuritic Pain, Shortness of Breath, Shortness of breath at rest, Shortness of breath upon exertion, Sputum production, Wheezing Gastrointestinal: Denies: Abdominal Pain, Constipation, Diarrhea, Dyspepsia, Hematemesis, Hematochezia, Nausea, Melena, Vomiting Genitourinary: Denies: Dysuria, Frequency Gynecological: Denies: Sexual concerns, Vaginal bleeding Musculoskeletal: Denies: Back Pain, Joint Pain, Joint stiffness, Joint swelling, Joint Tenderness, Muscle pain, Neck Pain Skin: Denies: Dryness, Jaundice, Lesions, Pruritis, Rash, Skin Changes, Wounds Neurological: Denies: Balance problems, Blurred vision, Double vision, Change in Speech, Slurred speech, Confusion, Difficulty swallowing, Focal weakness, Headaches, Incoordination, Numbness, Tingling, Tremor, Seizures Psychiatric: Reports: Depression - h/o. Denies: Anxiety Endocrine: Denies: Change in Body Habitus, Heat/ Cold Intolerance, Polydipsia, Polyuria Hematologic/ Lymphatic: Reports: Anemia. Denies: Adenopathy, Easy Bruising, Easy Bleeding, Petechiae, Purpura VTE Information - Inpt Only VTE Present on Admission: No VTE Pharm Prophylaxis ordered?: No Reason prophylaxis not ordered:: Procedure Not Indicated Patient Problems: Active and Suspected Problems Hyponatremia (Acute) - Physical Exam Vitals/I&O's: Vital Signs Temp Pulse Resp BP Pulse Ox 98.6 F 91 18 95/55 L 99 05/31/20 11:05/31/20 11:05/31/20 11:05/31/20 11:05/31/20 11:09 Oxygen Delivery Method Room Air Weight: 67.132 kg Body Mass Index (BMI) 24.6 General: Alert, Oriented x3, Cooperative, No apparent distress, Well developed, Well nourished, - - WF sitting up in bed, appears well HEENT: Atraumatic, PERRLA, EOMI, Normocephalic, EAC Clear Oral: No Gingival or Mucosal Lesions/ Ulcerations, Dry Mucosa Neck: Supple, No JVD, Negative Hepatojugular Reflux, No Nodes, No Nuchal Rigidity, Trachea Midline, Thyroid Normal Size and Texture Lungs: Clear to auscultation, Normal air movement, No rhonchi, No wheeze, No rales Cardiovascular: Regular rate, Regular Rhythm, Normal S1, Normal S2, No murmurs, No Ectopic Activity, No rub noted, No Gallop Abdomen: Bowel Sounds Present, Soft, Non Tender, Non-Distended, No Hepato-splenomegaly, - - Ostomy RLQ with parasomal hernia, ostomy site is pink Extremities: No clubbing, No cyanosis, No edema, Capillary Refill Less than 3 Seconds, Peripheral Pulses Normal Skin: No rashes, No breakdown Musculoskeletal: No Tenderness to Palpation of Joints or Extremities, No Muscle Wasting Lymphatic: No Cervical, Supraclavicular, or Inguinal Adenopathy Neurological: Cranial nerves II-XII grossly intact, Deep Tendon Reflexes 2+/4 and Symmetrical, Neuro grossly intact, Motor Exam 5/5 strength throughout, Muscle tone normal, Sensory exam intact to light touch and pain, Coordination normal Psych/Mental Status: Normal Affect, Appropriate, - - pleasant, Alert and oriented to time, place, person, mood and affect Laboratory Results 05/31/20 09:45: WBC 10.5, RBC 3.71 L, Hgb 10.6 L, Hct 31.6 L, MCV 85.2, MCH 28.6, MCHC 33.5, RDW Std Deviation 49.0 H, RDW Coeff of [place] 15.8 H, Plt Count 461 H, MPV 8.9, Immature Gran % (Auto) 2.900 H, Neut % (Auto) 83.6 H, Lymph % (Auto) 5.6 L, [place] % (Auto) 7.4, Eos % (Auto) 0.1, Baso % (Auto) 0.4, Absolute Neuts (auto) 8.8 H, Absolute Lymphs (auto) 0.59 L, Nucleated RBC % 0, Differential Comment SCANNED, Anisocytosis CORRECTIONAL OFFICER SERGEANT, Microcytosis CORRECTIONAL OFFICER SERGEANT, Macrocytosis CORRECTIONAL OFFICER SERGEANT 05/31/20 09:45: Sodium Cancelled, Potassium Cancelled, Chloride Cancelled, Carbon Dioxide Cancelled, Anion Gap Cancelled, BUN Cancelled, Creatinine Cancelled, Estim Creat Clear Calc Cancelled, Est GFR (MDRD) Af Amer Cancelled, Est GFR (MDRD) Non-Af Cancelled, BUN/Creatinine Ratio Cancelled, Glucose Cancelled, Calcium Cancelled 05/31/20 10:03: Sodium 120 L, Potassium 3.0 L, Chloride 89 L, Carbon Dioxide 19.0 L, Anion Gap 12, BUN 19 H, Creatinine 1.44 H, Estim Creat Clear Calc 35.05, Est GFR (MDRD) Af Amer 47 L, Est GFR (MDRD) Non-Af 39 L, BUN/Creatinine Ratio 13.2, Glucose 106, Calcium 7.7 L Current Medications Sodium Chloride () 1,000 mls @ 150 mls/hr IV .[id number] [facility] Last Admin: 05/31/20 09:59 Dose: 150 mls/hr Documented by: Assessment/Plan All Active Problems Acute kidney injury (Acute) Hyponatremia (Acute) Acute Hyponatremia -had a recent admission at the end of March with Na of 127 -now 120 -at that time thought to be hypovolemic hyponatremia and pt resolved with IVF -TSH was wnl at that time -IVF at 75 cc/hr -will taper Lexapro--> on 20 mg--> wean to 10 mg and would then wean to 5 then off -q 6 hr Na -check urine and serum osm and Urine Na and UA -has not had increased ostomy output but does admit to poor PO intake at time with regards to fluids Hypokalemia -PO replacement 40 mEq and repeat in am -Check am Mag Chronic Anemia -stable hgb -trend -had EGD on 04/23 for heme + stool -showed small hiatal hernia -erythematous mucosa in the antrum and gastric body -nml duodenum -continue Fe Gastritis-mild -continue PPI Thrombocytosis -trending down when compared to previous lab -repeat in am TOMAS -baseline sCr appears to be 0.7-0.8 (11/2019) -now 1.44 -will trend -check UA NAGMA -mild -likely related to TOMAS -trend HPL/HTN -continue statin -continue BB Depression -wean lexapro to 10 mg and then after 7 days wean to 5 mg then off after 2 week taper -pt feels that she doesn't need this anyway DVT prophylaxis -early ambulation Code Status -Full
[2020-05-31] MEDS: 0.9% Normal Saline 1,000 ML 75 ML IV ×2 (12:34→20:57)
[2020-05-31 13:03] LABS: Anion Gap 11 (5-15); BUN 19 mg/dL (7-18); BUN/Creat Ratio 13.8 RATIO (10-20); Calcium,Total 7.7 mg/dL (8.5-10.1); Chloride 89 mmol/L (98-107); Creatinine, Serum 1.38 mg/dL (0.55-1.02); EST Glomerular Filtration Rate 41 mL/min (>60); Est Glom Filt Rate - Afr Amer 49 mL/min (>60); Estimated Creatinine Clearance 36.57 ml/min; Glucose 95 mg/dL (74-106); Sodium Level 120 mmol/L (136-145)
[2020-05-31 13:12] LABS: Osmolality, Serum 248 mOsm/KG (280-301)
[2020-05-31 15:34] LABS: Color, Urine Yellow (Yellow); Glucose, Dipstick Normal (Normal); Ketone-Dipstick Negative (Negative); Leukocyte Esterase-Dipstick 25 /ul (Negative); Nitrite-Dipstick Negative (Negative); Occult Blood-Urine Negative /ul (Negative); Protein-Dipstick 15 mg/dl (Negative); Urine Bilirubin Dipstick Negative (Negative); Urine Clarity Clear (Clear); Urine Urobilinogen Normal (Normal)
[2020-05-31 15:37] LABS: Urine Sodium 9 mmol/L (Not Establ.)
[2020-05-31 16:22] LABS: Osmolality, Urine 262 mOsm/KG
[2020-05-31 19:23] LABS: Anion Gap 9 (5-15); BUN 21 mg/dL (7-18); BUN/Creat Ratio 15.1 RATIO (10-20); Calcium,Total 7.4 mg/dL (8.5-10.1); Chloride 93 mmol/L (98-107); Creatinine, Serum 1.39 mg/dL (0.55-1.02); EST Glomerular Filtration Rate 40 mL/min (>60); Est Glom Filt Rate - Afr Amer 49 mL/min (>60); Estimated Creatinine Clearance 36.31 ml/min; Glucose 115 mg/dL (74-106); Potassium 3.1 mmol/L (3.5-5.1); Sodium Level 122 mmol/L (136-145)
[2020-05-31] MEDS: Atorvastatin Calcium 20 MG Tablet PO (20:57)
[2020-05-31] MEDS: Metoprolol Tartrate 25 MG Tablet PO (20:57)
[2020-05-31] MEDS: Mag Hydrox/Al Hydrox/Simeth 30 ML UDC PO (20:57)
[2020-06-01 03:35] VITALS: BP 106/41; PULSE 68; RESP 16; TEMP 36.5; O2SAT 97
[2020-06-01 06:57] LABS: Absolute Lymphocyte Count 0.72 X10^3/uL (0.83-4.51); Absolute Neutrophil Count 4.2 X10^3/uL (2.0-7.7); Basophil# 0.02 X10^3/uL; Basophil% 0.3 % (0-1); Eosinophil# 0.04 X10^3/uL; Eosinophils% 0.7 % (0-5); Hematocrit 27.6 % (37-47); Hemoglobin 9.1 g/dL (12.0-15.0); Lymphocyte # 0.72 X10^3/ul (4.0); Lymphocyte % 11.9 % (19-41); Mean Corpuscular Hgb 29.1 pg (27.0-32.0); Mean Corpuscular Volume 88.2 fL (81-99); Mean Platelet Vol. 8.5 fl (6.2-12.0); Monocyte# 0.79 X10^3/uL; Monocyte% 13.1 % (0-10); NRBC Flagged by Analyzer 0 % (0-5); Neutrophil # 4.22 X10^3/uL (2.7-7.7); Neutrophil % 69.7 % (47-70); Platelet Count 383 K/mm3 (150-450); RBC Distribution Width CV 16.4 % (11.6-14.6); Red Blood Count 3.13 M/mm3 (4.2-5.4); White Blood Count 6.1 K/mm3 (4.4-11.0)
[2020-06-01 07:32] LABS: Anion Gap 9 (5-15); BUN 15 mg/dL (7-18); BUN/Creat Ratio 14.7 RATIO (10-20); Calcium,Total 7.2 mg/dL (8.5-10.1); Chloride 98 mmol/L (98-107); Creatinine, Serum 1.02 mg/dL (0.55-1.02); EST Glomerular Filtration Rate 58 mL/min (>60); Est Glom Filt Rate - Afr Amer 70 mL/min (>60); Estimated Creatinine Clearance 49.48 ml/min; Glucose 96 mg/dL (74-106); Magnesium 1.6 mg/dL (1.6-2.6); Potassium 3.1 mmol/L (3.5-5.1); Sodium Level 128 mmol/L (136-145)
[2020-06-01 07:35] LABS: Phosphorus 1.7 mg/dL (2.5-4.9)
[2020-06-01 10:11] VITALS: BP 102/54; PULSE 68; RESP 18; TEMP 36.6; O2SAT 98
[2020-06-01] MEDS: 0.9% Normal Saline 1,000 ML 75 ML IV ×2 (10:19→22:05)
[2020-06-01 10:20] VITALS: BP 102/54; PULSE 68
[2020-06-01] MEDS: Metoprolol Tartrate 25 MG Tablet PO ×2 (10:20→22:04)
[2020-06-01] MEDS: Pantoprazole Sodium 40 MG Tablet PO (10:20)
[2020-06-01] MEDS: Escitalopram Oxalate 10 MG Tablet PO (10:21)
[2020-06-01] MEDS: Ferrous Sulfate 325 MG Tablet PO (12:18)
--- NOTE | 2020-06-01 13:15 | PCM.PN.HOSP ---
Patient Problems: Active and Suspected Problems Hyponatremia (Acute) Subjective: Pt states that she is feeling fine. No issues overnight. Vitals/I&O's: Vital Signs Temp Pulse Resp BP Pulse Ox 97.9 F 68 18 102/54 L 98 06/01/20 10:11 06/01/20 10:20 06/01/20 10:11 06/01/20 10:20 06/01/20 10:11 Oxygen Delivery Method Room Air Weight: 67.9 kg Body Mass Index (BMI) 24.9 Intake and Output for Last 24 Hours 05/30/20 05/31/20 06/01/20 23:59 23:59 23:59 Intake Total 1166.25 / 1166.25 2350 / 2350 Output Total 200 / 200 Balance 1166.25 / 1166.25 2150 / 215 General: Alert, Oriented x3, Cooperative, No apparent distress, Well developed, Well nourished, - - WF sitting up in bed eating lunch and watching TV HEENT: Atraumatic, PERRLA, EOMI, Normocephalic, EAC Clear Oral: Moist Mucosa, No Gingival or Mucosal Lesions/ Ulcerations Neck: Supple, No Nodes, Trachea Midline, Thyroid Normal Size and Texture Lungs: Clear to auscultation, Normal air movement, No rhonchi, No wheeze, No rales Cardiovascular: Regular rate, Regular Rhythm, Normal S1, Normal S2, No murmurs, No Ectopic Activity, No rub noted, No Gallop Abdomen: Bowel Sounds Present, Soft, Non Tender, Non-Distended, No Hepato-splenomegaly, No hernias noted, - - Stoma pink with good output Extremities: No clubbing, No cyanosis, No edema, Capillary Refill Less than 3 Seconds, No Calf Tenderness, Peripheral Pulses Normal Skin: No rashes, No breakdown Musculoskeletal: No Tenderness to Palpation of Joints or Extremities, No Muscle Wasting Lymphatic: No Cervical, Supraclavicular, or Inguinal Adenopathy Neurological: Cranial nerves II-XII grossly intact, Neuro grossly intact, Muscle tone normal, Coordination normal Psych/Mental Status: Normal Affect, Appropriate, Alert and oriented to time, place, person, mood and affect Laboratory Results 05/31/20 15:15: Urine Color Yellow, Urine Clarity Clear, Urine pH 6.0, Ur Specific [place] 1.010, Urine Protein 15 H, Urine Glucose (UA) Normal, Urine Ketones Negative, Urine Occult Blood Negative, Urine Nitrite Negative, Urine Bilirubin Negative, Urine Urobilinogen Normal, Ur Leukocyte Esterase 25 H 05/31/20 15:15: Ur Random Sodium 9 05/31/20 15:15: Urine Osmolality 262 05/31/20 18:50: Sodium 122 L, Potassium 3.1 L, Chloride 93 L, Carbon Dioxide 20.0 L, Anion Gap 9, BUN 21 H, Creatinine 1.39 H, Estim Creat Clear Calc 36.31, Est GFR (MDRD) Af Amer 49 L, Est GFR (MDRD) Non-Af 40 L, BUN/Creatinine Ratio 15.1, Glucose 115 H, Calcium 7.4 L 06/01/20 02:18: Sodium 127 L, Potassium 3.2 L, Chloride 98, Carbon Dioxide 20.0 L, Anion Gap 9, BUN 18, Creatinine 1.08 H, Estim Creat Clear Calc 46.73, Est GFR (MDRD) Af Amer 65, Est GFR (MDRD) Non-Af 54 L, BUN/Creatinine Ratio 16.7, Glucose 112 H, Calcium 7.1 L 06/01/20 06:45: WBC 6.1, RBC 3.13 L, Hgb 9.1 L, Hct 27.6 L, MCV 88.2, MCH 29.1, MCHC 33.0, RDW Std Deviation 52.0 H, RDW Coeff of [place]sh[place] 16.4 H, Plt Count 383, MPV 8.5, Immature Gran % (Auto) 4.300 H, Neut % (Auto) 69.7, Lymph % (Auto) 11.9 L, [place] % (Auto) 13.1 H, Eos % (Auto) 0.7, Baso % (Auto) 0.3, Absolute Neuts (auto) 4.2, Absolute Lymphs (auto) 0.72 L, Nucleated RBC % 0 06/01/20 06:45: Sodium 128 L, Potassium 3.1 L, Chloride 98, Carbon Dioxide 21.0, Anion Gap 9, BUN 15, Creatinine 1.02, Estim Creat Clear Calc 49.48, Est GFR (MDRD) Af Amer 70, Est GFR (MDRD) Non-Af 58 L, BUN/Creatinine Ratio 14.7, Glucose 96, Calcium 7.2 L, Magnesium 1.6 06/01/20 06:45: Phosphorus 1.7 L Current Medications Acetaminophen (Tylenol) 650 mg PO Q6H PRN PRN PRN Reason: Pain Score 1-10/Temp > 100.7 F Al Hydroxide/Mg Hydroxide (Mylanta Ii) 30 ml PO Q6H PRN PRN PRN Reason: Gastric Burning Last Admin: 05/31/20 20:57 Dose: 30 ml Documented by: Alendronate Sodium (Fosamax) 70 mg PO We@0600 [facility] Atorvastatin Calcium (Lipitor) 20 mg PO QHS [facility] Last Admin: 05/31/20 20:57 Dose: 20 mg Documented by: Dextrose (D50w Syringe) 0 gm IV X1 PRN; Protocol PRN Reason: Hypoglycemia Escitalopram Oxalate (Lexapro) 10 mg PO DAILY [facility] Last Admin: 06/01/20 10:21 Dose: 10 mg Documented by: Ferrous Sulfate (Ferrous Sulfate) 325 mg PO DAILY@1200 [facility] Last Admin: 06/01/20 12:18 Dose: 325 mg Documented by: Glucagon () 1 mg IM .X1 PRN PRN Reason: Hypoglycemia Sodium Chloride () 1,000 mls @ 75 mls/hr IV .[id number] [facility] Last Admin: 06/01/20 10:19 Dose: 75 mls/hr Documented by: Melatonin (Melatonin) 3 mg PO QHS PRN PRN PRN Reason: INSOMNIA Metoprolol Tartrate (Lopressor (Beta Corinne)) 25 mg PO BID [facility] Last Admin: 06/01/20 10:20 Dose: 25 mg Documented by: Pantoprazole Sodium (Protonix) 40 mg PO DAILY [facility] Last Admin: 06/01/20 10:20 Dose: 40 mg Documented by: Potassium Chlor[facility] (K-Dur) [facility] Stop: 06/02/20 08:01 Last Admin: 06/01/20 09:01 Dose: 40 meq Documented by: Sodium Chloride () 10 - 40 ml IV UD PRN PRN Reason: SALINE FLUSH STROKE Vital Signs/Narrative: Vital Signs Temp Pulse Resp BP Pulse Ox 06/01/20 10:20 68 102/54 L 06/01/20 10:11 97.9 F 68 18 102/54 L 98 Medical Necessity - Tobacco Use Smoking Status: Former smoker Assessment/Plan All Active Problems Acute kidney injury (Acute) Hyponatremia (Acute) Acute Hypovolemic Hyponatremia -had a recent admission at the end of March with Na of 127 -now 128 from 120 on admission -at that time thought to be hypovolemic hyponatremia and pt resolved with IVF -TSH was wnl at that time -suspect this is all related to not enough fluid intake with Urine Na 9/Serum Osm 248/Urine Osm 262 but may have a component of SIADH from SSRI (wean to off) -continue IVF at 75 cc/hr -will taper Lexapro--> on 20 mg--> wean to 10 mg and would then wean to 5 then off -Na now daily -stool output is not clearly documented -has not had increased ostomy output but does admit to poor PO intake at time with regards to fluids Hypokalemia -PO replacement 40 mEq BID and repeat in am -Mag is WNL Hypophosphatemia -Replace and recheck in am Chronic Anemia -stable hgb (slight drop with IVF but expected) -trend -had EGD on 04/23 for heme + stool -showed small hiatal hernia -erythematous mucosa in the antrum and gastric body -nml duodenum -continue Fe Gastritis-mild -continue PPI Thrombocytosis -resolved TOMAS -baseline sCr appears to be 0.7-0.8 (11/2019) -sCr now 1.02 -resolving NAGMA -resolved HPL/HTN -continue statin -continue BB Depression -wean lexapro to 10 mg and then after 7 days wean to 5 mg then off after 2 week taper -pt feels that she doesn't need this anyway DVT prophylaxis -early ambulation Code Status -Full Inpatient E&M: [id number] [facility] L3
--- NOTE | 2020-06-01 14:03 | CHAPLAIN ---
Type of Pastoral Visit _x__ Initial Visit ___ Follow-up Visit ___ On-call Visit ___ General Patient Visit ___ Spiritual Assessment ___ Family Conference ___ Bereavement ___ Rapid Response ___ Code Blue ___ Other (describe below) Pastoral Care Referral From _x__ Patient ___ Family ___ Nurse ___ Physician ___ Baster Hand ___ Stitch Cleaner ___ Other (describe below) Sacrament/Intervention _x__ Active listening ___ Anointing ___ Gnosticism ___ Bereavement ___ Communion ___ Carolyn exploration ___ ___ Life review ___ Prayer ___ Reconciliation ___ Sacrament of Sick ___ Supportive presence ___ Wedding ___ Other (describe below) Pastoral Comments
--- NOTE | 2020-06-01 15:06 | CASEMGMT ---
RN [facility] Face to Face with patient for initial transition planning/care coordination assessment. RN CM introduced self and role at [facility]. Patient lying in bed, alert and oriented. Patient willing to participate in assessment and is able to answer all questions appropriately. Care providers, pharmacy, and demographics verified. Patient wishes to discharge home, denies need for home health at this time. Patient states she has no further needs or concerns at this time. CM to follow for discharge planning needs that may arise. PCP: [place] Specialists: None [facility]erred [facility]acy: [facility] Insurance: [employer] Prescription Benefit: yes Living Will/HPOA: none LNOK: Living Arrangements: Patient lives with in 2 story home. Patient is able to ambulate stairs and is independent at home. Transportation: self/ DME/HHC: Patient denies DME or previous HHC. Disposition Plan: Patient to discharge home with family support and follow-up plans in place. Mariana KUMAR, RN, CM
[2020-06-01] MEDS: Na Biphos/Potassium Phosphate PACKET 1 PACKET PO ×2 (15:11→22:05)
[2020-06-01 15:14] VITALS: BP 121/91; PULSE 78; RESP 18; TEMP 37; O2SAT 98
[2020-06-01 22:04] VITALS: BP 111/78; PULSE 97; RESP 17; TEMP 37.1; O2SAT 100
[2020-06-01] MEDS: Atorvastatin Calcium 20 MG Tablet PO (22:04)
[2020-06-02 02:37] VITALS: BP 124/77; PULSE 72; RESP 17; TEMP 37; O2SAT 100
[2020-06-02] MEDS: Na Biphos/Potassium Phosphate PACKET 1 PACKET PO ×2 (05:53→09:57)
[2020-06-02 08:17] LABS: Anion Gap 10 (5-15); BUN 11 mg/dL (7-18); Calcium,Total 6.9 mg/dL (8.5-10.1); Chloride 102 mmol/L (98-107); EST Glomerular Filtration Rate 59 mL/min (>60); Est Glom Filt Rate - Afr Amer 72 mL/min (>60); Estimated Creatinine Clearance 50.47 ml/min; Glucose 94 mg/dL (74-106); Magnesium 1.5 mg/dL (1.6-2.6); Phosphorus 2.2 mg/dL (2.5-4.9); Potassium 4.4 mmol/L (3.5-5.1); Sodium Level 130 mmol/L (136-145)
[2020-06-02 09:53] VITALS: BP 107/52; PULSE 90; RESP 18; TEMP 36.9; O2SAT 100
[2020-06-02 09:56] VITALS: PULSE 90
[2020-06-02] MEDS: Metoprolol Tartrate 25 MG Tablet PO (09:56)
[2020-06-02] MEDS: Pantoprazole Sodium 40 MG Tablet PO (09:57)
[2020-06-02] MEDS: Escitalopram Oxalate 10 MG Tablet PO (09:58)
--- NOTE | 2020-06-02 09:58 | DCINST_ITS ---
- Discharge Diagnoses Current Active Problems: Current Active and Chronic Problems Hyponatremia (Acute) You will use the following diet at home:: No restrictions, Regular, Other - encourage increase fluid intake and alternate with Gatorade and water Your food should be the consistency of: Regular Your liquids should be the consistency of: Regular/Thin Discharge Activity: Return to Normal Activity, No Restrictions May resume sexual activity in: No Restrictions Call your doctor if you observe: Fever of 101 or Higher, Shortness of breath, Dizziness, Fainting spells, Chest pain Additional Instructions: Please call Dr. Mazariegos's office on Thursday (06/04) for Basic metabolic profile, Mag and Phos Levels to be done on Thursday Allergies/Adverse Reactions: Allergies No Known Allergies Allergy (Verified 05/31/20 09:17) Medications to take at Discharge Alendronate Sodium 70 mg PO WE 04/20/20 Atorvastatin Calcium 20 mg PO DAILY 04/20/20 Escitalopram Oxalate 20 mg PO DAILY 04/20/20 Metoprolol Tartrate 25 mg PO BID 04/20/20 Pantoprazole Sodium [Protonix] 40 mg PO DAILY #30 tab 04/23/20 Ferrous Sulfate, Dried [Iron] 65 mg PO DAILY 05/31/20 Primary Care Physician: Virginie Mazariegos MD [Primary Care Provider] - Please follow up with your Primary Care Physician in: 1 week Test Results: Test results from this visit will be discussed in further detail at your follow- up appointment, if applicable.
--- NOTE | 2020-06-02 10:02 | PCM.DC.SUM ---
Discharge Date and Diagnosis - Problem List Patient Problems: Active and Suspected Problems Hyponatremia (Acute) Date of Admission: 05/31/20 Date of Discharge: 06/02/20 - Primary Discharge Diagnosis Acute Problems: Active Problems Hyponatremia (Acute) - Secondary Discharge Diagnosis Chronic Problems: Chronic Problems History of colon cancer (Chronic) Depression (Chronic) GERD (gastroesophageal reflux disease) (Chronic) Hyperlipidemia (Chronic) Hypertension (Chronic) Hospital Course and Treatment Operations: None Procedures: None Summary of Care Provided: The patient is a 65 year old F who presented to the ED on 05/31 for abn labs (hyponatremia) after seeing her PCP on 05/30 and having lab drawn. She was told to come in for her Na of 119. She was admitted for hyponatremia at the end of March as well and responded to IVF. Na at d/c was 137. She denied any abnormalities and is feeling well. She has an ostomy which was placed by Dr. Roberts at [facility] in for UC and stated that her output from her ostomy has been stable. She did admit to poor PO liquid input at times. She was not on diuretics but was on an SSRI that she has been on for some time and would like to get off of anyway. Her VS were stable. Na on admission was 120/K is 3/Cl is 89/AG 12/HCO3 19/BUN 19 and sCr is 1.44. She was started on IVF in the ED. She was admitted to the F and continued on IVF and her Na slowly trended up to 130 by the day of d/c when pt was adament that she wanted to go home and promise she would follow up closely. Her Urine Na was 9 with a urine osm of 262 and a serum osmolality of 248 indication she has hypovoliemia hypo-osmolar hyponatremia suggestive of dehydration. She may have a component of SIADH as well with her penitentiary SSRI use as well. She states that she would like to get of of her antidepressant anyway as she doesnt feel that she needs them anymore. She was tapered to 10 mg and is to continue this for 5 more days and then cut the dose to 5 mg for 7 days and then stop the medication. She was noted to have hypokalemia, hypomagnesemia and hypophosphatemia and all electrolytes have been replaced. She is to f/u with Dr. Mazariegos for lab work on monday 06/04 and make a f/u appt for 1 week. Pt was d/c in stable condition. Acute Hypo-osmolar Hypovolemic Hyponatremia -had a recent admission at the end of March with Na of 127 -now 128 from 120 on admission -at that time thought to be hypovolemic hyponatremia and pt resolved with IVF -TSH was wnl at that time -suspect this is all related to not enough fluid intake with Urine Na 9/Serum Osm 248/Urine Osm 262 but may have a component of SIADH from SSRI (wean to off) -continue IVF at 75 cc/hr -will taper Lexapro--> on 20 mg--> wean to 10 mg x 5 more days and would then wean to 5mg x 7 days then off -needs increased fluid intake with water and fluids with solute Hypokalemia -resolved Hypophosphatemia -improved but still low -replace and f/u lab on Thursday Hypomagnesemia -4 gm bolus IV prior to d/c -f/u lab on Thursday Chronic Anemia -stable hgb (slight drop with IVF but expected) -trend -had EGD on 04/23 for heme + stool -showed small hiatal hernia -erythematous mucosa in the antrum and gastric body -nml duodenum -continue Fe Gastritis-mild -continue PPI Thrombocytosis -resolved TOMAS -baseline sCr appears to be 0.7-0.8 (11/2019) -sCr now 1.0 today -resolving NAGMA -resolved HPL/HTN -continue statin -continue BB Depression -wean lexapro to 10 mg and then after 7 days wean to 5 mg then off after 2 week taper -pt feels that she doesn't need this anyway DVT prophylaxis -early ambulation Code Status -Full Patient Problems: Active and Suspected Problems Hyponatremia (Acute) - Physical Exam Vitals/I&O's: Vital Signs Temp Pulse Resp BP Pulse Ox 98.5 F 90 18 107/52 L 100 06/02/20 09:53 06/02/20 09:56 06/02/20 09:53 06/02/20 09:53 06/02/20 09:53 Oxygen Delivery Method Room Air Weight: 67.9 kg Body Mass Index (BMI) 24.9 Intake and Output for Last 24 Hours 05/31/20 06/01/20 06/02/20 23:59 23:59 23:59 Intake Total 1166.25 / 1166.25 4032.5 / 4432.5 1575 / 1575 Output Total 650 / 650 Balance 1166.25 / 1166.25 3382.5 / 3782.5 1575 / 1575 General: Alert, Oriented x3, Cooperative, No apparent distress, Well developed, Well nourished, - - WF sitting up in bed, watching TV HEENT: Atraumatic, PERRLA, EOMI, Normocephalic, EAC Clear Oral: Moist Mucosa, No Gingival or Mucosal Lesions/ Ulcerations Neck: Supple, No Nodes, Trachea Midline, Thyroid Normal Size and Texture Lungs: Clear to auscultation, Normal air movement, No rhonchi, No wheeze, No rales Cardiovascular: Regular rate, Regular Rhythm, Normal S1, Normal S2, No murmurs, No Ectopic Activity, No rub noted, No Gallop Abdomen: Bowel Sounds Present, Soft, Non Tender, Non-Distended, No hernias noted Extremities: No clubbing, No cyanosis, No edema, Capillary Refill Less than 3 Seconds, Peripheral Pulses Normal Skin: No rashes, No breakdown Musculoskeletal: No Tenderness to Palpation of Joints or Extremities, No Muscle Wasting Lymphatic: No Cervical, Supraclavicular, or Inguinal Adenopathy Neurological: Cranial nerves II-XII grossly intact, Neuro grossly intact, Muscle tone normal, Coordination normal Psych/Mental Status: Normal Affect, Appropriate, Alert and oriented to time, place, person, mood and affect Laboratory Results 06/01/20 02:18: Sodium Cancelled, Potassium Cancelled, Chloride Cancelled, Carbon Dioxide Cancelled, Anion Gap Cancelled, BUN Cancelled, Creatinine Cancelled, Estim Creat Clear Calc Cancelled, Est GFR (MDRD) Af Amer Cancelled, Est GFR (MDRD) Non-Af Cancelled, BUN/Creatinine Ratio Cancelled, Glucose Cancelled, Calcium Cancelled 06/02/20 06:55: Sodium 130 L, Potassium 4.4, Chloride 102, Carbon Dioxide 18.0 L, Anion Gap 10, BUN 11, Creatinine 1.00, Estim Creat Clear Calc 50.47, Est GFR (MDRD) Af Amer 72, Est GFR (MDRD) Non-Af 59 L, BUN/Creatinine Ratio 11.0, Glucose 94, Calcium 6.9 L, Phosphorus 2.2 L, Magnesium 1.5 L Current Medications Acetaminophen (Tylenol) 650 mg PO Q6H PRN PRN PRN Reason: Pain Score 1-10/Temp > 100.7 F Al Hydroxide/Mg Hydroxide (Mylanta Ii) 30 ml PO Q6H PRN PRN PRN Reason: Gastric Burning Last Admin: 05/31/20 20:57 Dose: 30 ml Documented by: Alendronate Sodium (Fosamax) 70 mg PO We@0600 [facility] Atorvastatin Calcium (Lipitor) 20 mg PO QHS [facility] Last Admin: 06/01/20 22:04 Dose: 20 mg Documented by: Dextrose (D50w Syringe) 0 gm IV X1 PRN; Protocol PRN Reason: Hypoglycemia Escitalopram Oxalate (Lexapro) 10 mg PO DAILY [facility] Last Admin: 06/02/20 09:58 Dose: 10 mg Documented by: Ferrous Sulfate (Ferrous Sulfate) 325 mg PO DAILY@1200 [facility] Last Admin: 06/01/20 12:18 Dose: 325 mg Documented by: Glucagon () 1 mg IM .X1 PRN PRN Reason: Hypoglycemia Sodium Chloride () 1,000 mls @ 75 mls/hr IV .[id number] [facility] Last Infusion: 06/02/20 09:45 Dose: 0 mls/hr Documented by: Melatonin (Melatonin) 3 mg PO QHS PRN PRN PRN Reason: INSOMNIA Metoprolol Tartrate (Lopressor (Beta Corinne)) 25 mg PO BID [facility] Last Admin: 06/02/20 09:56 Dose: 25 mg Documented by: Pantoprazole Sodium (Protonix) 40 mg PO DAILY [facility] Last Admin: 06/02/20 09:57 Dose: 40 mg Documented by: Potassium Phos/Sodium Phos (Neutra-Phos Packet) 1 packet PO TID [facility] Stop: 06/02/20 14:01 Last Admin: 06/02/20 05:53 Dose: 1 packet Documented by: Sodium Chloride () 10 - 40 ml IV UD PRN PRN Reason: SALINE FLUSH Discharge Activity: Return to Normal Activity, No Restrictions May resume sexual activity in: No Restrictions Call your doctor if you observe: Fever of 101 or Higher, Shortness of breath, Dizziness, Fainting spells, Chest pain Home Medications: Medications to take at Discharge Alendronate Sodium 70 mg PO WE 04/20/20 Atorvastatin Calcium 20 mg PO DAILY 05/29/20 Escitalopram Oxalate 20 mg PO DAILY 04/20/20 Metoprolol Tartrate 25 mg PO BID 04/20/20 Pantoprazole Sodium [Protonix] 40 mg PO DAILY #30 tab 04/23/20 Ferrous Sulfate, Dried [Iron] 65 mg PO DAILY 05/31/20 Primary Care Physician: Virginie Mazariegos MD [Primary Care Provider] - Please follow up with your Primary Care Physician in: 1 week Medical Necessity - Tobacco Use Smoking Status: Former smoker Meaningful Use Info Meaningful Use Diagnoses (Choose all that apply): None applicable Inpatient E&M: 31278 [facility]
[2020-06-02] MEDS: Magnesium Sulfate 4gm/100mL 4 GM/100 ML IV.SOLN. IV (10:35)
[2020-06-02] MEDS: Ferrous Sulfate 325 MG Tablet PO (12:44)
[2020-06-02 13:00] VITALS: BP 107/36; PULSE 82; RESP 18; TEMP 36.9; O2SAT 99
== END 2020-06-02 13:24 | disposition home or self-care (01) | DRG 641 ==
LOC: ED 10:51 → MS3 11:08
PROVIDERS: Admitting Provider Internal Medicine; Emergency Provider Emergency Medicine; PCP Family Medicine; Visit Provider Internal Medicine
DX: E86.0 Dehydration (principal); N17.9 Acute kidney failure, unspecified; E87.1 Hypo-osmolality and hyponatremia; E87.2 Acidosis; E87.6 Hypokalemia; K29.70 Gastritis, unspecified, without bleeding; E86.1 Hypovolemia; E83.39 Other disorders of phosphorus metabolism; E83.42 Hypomagnesemia; D64.9 Anemia, unspecified; I10 Essential (primary) hypertension; E78.5 Hyperlipidemia, unspecified; R63.4 Abnormal weight loss; K21.9 Gastro-esophageal reflux disease without esophagitis; F32.9 Major depressive disorder, single episode, unspecified; Z79.899 Other long term (current) drug therapy; Z93.2 Ileostomy status; Z90.49 Acquired absence of other specified parts of digestive tract; Z85.038 Personal history of other malignant neoplasm of large intestine; Z87.891 Personal history of nicotine dependence
CPT/HCPCS: 36415; 80048; 80053; 81002; 83735; 83930; 83935; 84100; 84300; 84443; 85025; 85652; 99251; 99285; J7030; A4216; G0463

== ENCOUNTER → 2020-06-04 09:53 | Outpatient (CLI) | payer MEDICARE, SELFPAY ==
[2020-05-31 11:41] VITALS: BMI 24.9
[2020-06-04 13:01] LABS: Anion Gap 8 (5-15); BUN 10 mg/dL (7-18); BUN/Creat Ratio 10.7 RATIO (10-20); Calcium,Total 7.4 mg/dL (8.5-10.1); Chloride 104 mmol/L (98-107); Creatinine, Serum 0.93 mg/dL (0.55-1.02); EST Glomerular Filtration Rate 64 mL/min (>60); Est Glom Filt Rate - Afr Amer 78 mL/min (>60); Glucose 118 mg/dL (74-106); Phosphorus 1.7 mg/dL (2.5-4.9); Potassium 3.9 mmol/L (3.5-5.1); Sodium Level 129 mmol/L (136-145)
== END ==
PROVIDERS: PCP Family Medicine; Referring Provider Family Medicine; Visit Provider Internal Medicine
DX: E87.1 Hypo-osmolality and hyponatremia (principal)
CPT/HCPCS: 36415; 80048; 83735; 84100

== ENCOUNTER → 2020-06-06 17:46 | Outpatient (CLI) | payer MEDICARE, SELFPAY ==
[2020-05-31 11:41] VITALS: BMI 24.9
--- NOTE | 2020-06-06 17:50 | CT_ITS ---
STUDY: CT CHEST WITH CONTRAST REASON FOR EXAM: Female, 65 years old. WEIGHT LOSS/DYSPNEA,ULCERATIVE COLITIS RADIATION DOSAGE (If Supplied By Facility): CTDIvol = ( 13.68 ) mGy, DLP = ( 995.24 ) mGycm TECHNIQUE: Transaxial imaging was performed following intravenous administration of Oral and amp; IV Readi-CAT and amp; 100mL Isovue-370. Individualized dose optimization techniques were used for this CT. COMPARISON: None. FINDINGS: There is marked hyperinflation of the lungs consistent with chronic obstructive lung disease (COPD). Scarring in both apices. No infiltrates. No effusions. There is no demonstrated pleural abnormality. Normal heart and pericardium. Normal mediastinum. Normal hilar regions. Normal enhanced pulmonary arteries. Normal aorta arch and descending thoracic aorta. There is an increased kyphosis of the thoracic spine. There is no demonstrated abnormality of the visualized upper abdomen. CT/Chest WITH Contrast IMPRESSION: Severe COPD. No acute chest disease. Electronically Signed: Mike Brito MD at 23:02 EDT , Service support ,
--- NOTE | 2020-06-06 17:50 | CT_ITS ---
STUDY: CT ABDOMEN AND PELVIS WITH CONTRAST REASON FOR EXAM: Female, 65 years old. WEIGHT LOSS/DYSPNEA, ulcerative colitis. Previous colectomy. Ileostomy. RADIATION DOSAGE (If Supplied By Facility): CTDIvol = ( 13.68 ) mGy, DLP = ( 995.24 ) mGycm TECHNIQUE: Transaxial images were obtained from the dome of the diaphragm to the symphysis pubis with oral contrast. Oral and amp; IV Readi-CAT and amp; 100mL Isovue-370 was administered. Sagittal and coronal images were reconstructed. Individualized dose optimization techniques were used for this CT. COMPARISON: None. FINDINGS: There is decreased attenuation of the liver consistent with steatosis. There is hepatomegaly. The gallbladder is contracted. Normal spleen. Normal pancreas. Normal bilateral adrenal glands. Normal right kidney. Normal left kidney. Incidental note of bilateral small renal cysts. Normal visualized stomach. Status post colectomy. Abnormal appearance of moderately long loop of small bowel extending into the right lower quadrant ileostomy, and of a loop of small bowel within a parastomal hernia. Small bowel show marked wall thickening and surrounding edema. Findings are consistent with severe enteritis of the small bowel leading to the abdominal wall, within the parastomal hernia, and the ileostomy itself. Finding could represent active primary inflammatory bowel disease in the distal most remaining of small bowel. Findings are best seen on axial images 47-79 and coronal images 18-60. Adjacent lymphadenopathy is seen at the ileostomy site. Normal abdominal aorta. Normal inferior vena cava. Normal retroperitoneum. Normal urinary bladder. There is absence of the uterus consistent with a prior hysterectomy. Normal osseous structures. CT/Abdomen/Pelvis WITH Contrast IMPRESSION: Markedly abnormal small bowel loops leading to the right lower quadrant ostomy, within the parastomal hernia, and of the ileostomy itself. Findings most consistent with active enteritis/primary inflammatory bowel disease. Electronically Signed: Mike Brito MD at 23:31 EDT , Service support ,
== END ==
PROVIDERS: PCP Family Medicine; Referring Provider Family Medicine; Visit Provider Family Medicine
DX: R63.4 Abnormal weight loss (principal)
CPT/HCPCS: 71260; 74177; Q9967

== ENCOUNTER → 2020-06-11 11:00 | Outpatient (CLI) | payer MEDICARE, SELFPAY ==
[2020-05-31 11:41] VITALS: BMI 24.9
[2020-06-11 12:37] LABS: Anion Gap 8 (5-15); BUN 15 mg/dL (7-18); BUN/Creat Ratio 12.7 RATIO (10-20); Calcium,Total 9.2 mg/dL (8.5-10.1); Chloride 101 mmol/L (98-107); Creatinine, Serum 1.18 mg/dL (0.55-1.02); EST Glomerular Filtration Rate 49 mL/min (>60); Est Glom Filt Rate - Afr Amer 59 mL/min (>60); Glucose 107 mg/dL (74-106); Potassium 3.6 mmol/L (3.5-5.1); Sodium Level 130 mmol/L (136-145)
== END ==
PROVIDERS: PCP Family Medicine; Referring Provider Family Medicine; Visit Provider Family Medicine
DX: E87.1 Hypo-osmolality and hyponatremia (principal)
CPT/HCPCS: 36415; 80048

== ENCOUNTER 2020-07-05 19:02 | Emergency (ER) | payer MEDICARE, SELFPAY ==
[2020-05-31 11:41] VITALS: BMI 24.9
[2020-07-05 19:04] VITALS: BP 81/46; PULSE 109; RESP 16; TEMP 36.3; O2SAT 100; BMI 23.3
--- NOTE | 2020-07-05 20:35 | CT_ITS ---
STUDY: CT ABDOMEN AND PELVIS WITHOUT CONTRAST REASON FOR EXAM: Female, 65 years old. DIFFUSE ABD PAIN. BLOOD IN ILEOSTOMY RADIATION DOSAGE (If Supplied By Facility): CTDIvol = ( 6.80 ) mGy, DLP = ( 314.18 ) mGycm TECHNIQUE: Transaxial images were obtained from the dome of the diaphragm to the symphysis pubis without oral contrast, and without intravenous contrast. Sagittal and coronal images were reconstructed. Individualized dose optimization techniques were used for this CT. COMPARISON: 06/06/2020. FINDINGS: The visualized lung bases are unremarkable. The visualized portions of the heart are within normal limits. Evaluation of the GI tract is limited by the absence of oral contrast. Previous exam had specifically mentioned very abnormal loops of bowel extending through the ostomy of the left abdominal wall and within the parastomal hernia with marked wall thickening. It is not clear what therapy patient had since that time. Today''s exam continues to show abnormal loops of bowel extending to the ostomy and into the parastomal hernia, again showing bowel wall thickening. However there is now extensive abnormality of the right abdominal wall itself in an around the ostomy where there are fluid densities, air densities, extensive induration, and a probable 11 cm abscess. Findings are most consistent with extensive infection of the right abdominal wall. There is decreased attenuation of the liver consistent with steatosis. There is hepatomegaly. Normal gallbladder and extrahepatic biliary system. Normal spleen. Normal pancreas. Normal bilateral adrenal glands. Normal right kidney. Normal left kidney. There is diffuse atherosclerotic calcification of the abdominal aorta, without a demonstrated aneurysm. Normal inferior vena cava. Normal retroperitoneum. Normal urinary bladder. There is absence of the uterus consistent with a prior hysterectomy. Normal osseous structures. CT/Abdomen/Pelvis without Cont IMPRESSION: Findings most consistent with extensive infection of the right abdominal wall with soft tissue air and abscess. Infection appears to be external to the peritoneum. Markedly abnormal appearance of the bowel loops extending to the ostomy as described previously with a very thickened wall. Electronically Signed: Mike Brito MD at 22:42 EDT , Service support ,
[2020-07-05 21:02] VITALS: BP 90/38; PULSE 90; RESP 16; TEMP 36.4; O2SAT 98
--- NOTE | 2020-07-05 21:11 | ED.DCSUM_ITS ---
History of Present Illness Chief Complaint: Abd Pain Informant: Patient, Family Narrative: Patient is a 65-year-old female with a history of ulcerative colitis who presents to the emergency department for diffuse abdominal pain. This has been present over the past month. It has been progressively getting worse. She currently rates the pain as an 8 out of 10. Patient the pain to the back. She does state she has been taking Aleve for it lately which she knows she is not supposed to be taking. She noticed some bright red blood in her ileostomy yesterday. No black tarry stools. Otherwise there is been normal output for the ostomy. There has not been bloody output today. She has been feeling very weak. She does get occasionally lightheaded. No chest pain. Mild shortness of breath. She does have a history of hysterectomy, appendectomy, colectomy. She states she has not been eating and drinking very much for the past few days. No fevers or chills. No cough, cold, congestion. She denies any urinary symptoms. Past Medical History - Allergies and Home Meds Allergies/Adverse Reactions: Allergies No Known Allergies Allergy (Verified 07/05/20 19:02) Primary Care Physician: Virginie Mazariegos MD [Primary Care Provider] - Prior records reviewed: Yes Past Medical History: - - Hypertension, hyperlipidemia, ulcerative colitis Surgical History: colectomy - Total due to UC and colon cancer, has an end ileostomy, hysterectomy Smoking Status: Former smoker - Family History Maternal Family History: Reports: No pertinent history Paternal Family History: Reports: No pertinent history Review of Systems All systems negative except as indicated General: Denies: Chills, Fever, Sweats Eyes: Denies: Visual changes - bilaterally, Diplopia ENT: Denies: Rhinorrhea, Sore throat Cardiovascular: Denies: Chest pain, Palpitations Respiratory: Denies: Dyspnea, Cough, Dyspnea on exertion Gastrointestinal: Reports: Abdominal pain, Nausea. Denies: Vomiting, Diarrhea, Melena, Hematochezia Genitourinary: Denies: Dysuria, Hematuria, Frequency Musculoskeletal: Denies: Back pain, Extremity Pain Skin: Denies: Rash, Wounds Neurological: Denies: Headache, Weakness, Numbness Physical Exam Vital Signs/Narrative: Vital Signs Temp Pulse Resp BP Pulse Ox 07/05/20 19:04 97.4 F L 109 H 16 81/46 L 100 Inital Vital Signs reviewed: Yes General: Well nourished, Well developed, No Acute Distress Head: Normocephalic, Atraumatic Eyes: Perrl, EOMI ENT: Moist mucous membranes, No rhinorrhea Neck: Supple, Nontender Cardiovascular: Regular rhythm, No murmurs, Tachycardia Respiratory: No distress, CTA bilaterally, Chest nontender Abdomen: Soft, Nondistended, Normal bowel sounds, Tender - Diffuse, Guarding, - - Ostomy present with output. Surrounding does not show any evidence of infection. Mucosa is pink and moist. No melena or bright red blood present.. Negative for: Rebound tenderness Back: Nontender, Normal Inspection. Negative for: CVA tenderness Extremities: Nontender, No edema Skin: No rash, Pallor Neurological: Alert, Oriented x3, Cranial nerves II-XII grossly intact, Normal Strength, Normal Sensation Psychological: Normal affect, Normal Mood Diagnostic/Tx/Re-eval - Medical Decision Making Patient presents to the emergency department for diffuse abdominal pain. She did have some bright red blood in the ostomy yesterday. Upon arrival to the ED she is mildly tachycardic and hypotensive. Basic lab work being obtained along with IV fluids started. She is given Zofran and morphine for pain management. Will do CT scan of the abdomen/pelvis. CT scan of the patient's abdomen showed free air and abscess collection consistent with extensive infection. Patient started on Zosyn. Lab work showed her to be hyponatremic, hypocalcemic. She was hypotensive but fluid responsive. I did call and discussed transfer as our general surgeon requested her to be transferred to the place where she had our initial operation. Patient otherwise is alert and talking. She is not symptomatic with hypotension. Lactic acid within normal limits. Intestinal wall is thickened but this does appear consistent with her previous exam to make me less concerned for ischemia. It was all made aware the patient. She understands and is agreeable with this plan. Will transfer at this time. Unfortunately ground transportation was delayed so the decision was made to transfer the patient by helicopter. - Critical Care Time Critical care time (excluding procedures): 30-74 minutes, Discussing w/Patient &/or Family/Applications Processor, Discussing w/Consultants, Arranging Admission or Transfer, Performing Direct Patient Care at Bedside ED Disposition - Plan for ED Patient: Disposition: [facility] Diagnosis: Abdominal infection, Septic shock, Hyponatremia, Hypocalcemia Referrals: Virginie Mazariegos MD [Primary Care Provider] -
[2020-07-05] MEDS: Ondansetron 4 MG/2 ML Vial IV ×2 (21:21→23:25)
[2020-07-05] MEDS: 0.9% Normal Saline 1,000 ML 999 ML IV ×2 (21:21→23:20)
[2020-07-05] MEDS: Morphine 4 MG/ML Syringe IV (21:21)
[2020-07-05 22:00] VITALS: BP 86/44; PULSE 102; RESP 18; TEMP 36.3; O2SAT 98
[2020-07-05 22:03] LABS: Lactic Acid 1.5 mmol/L (0.4-1.9)
[2020-07-05 22:08] LABS: ALB/GLOB Ratio 0.4 RATIO (0.9-2.4); AST(SGOT) 24 U/L (15-37); Alanine Aminotransfer ALT/SGPT 30 U/L (13-56); Albumin, Serum 1.7 g/dL (3.2-5.0); Alkaline Phosphatase 151 U/L (45-117); Anion Gap 13 (5-15); BUN 23 mg/dL (7-18); Calcium,Total 6.2 mg/dL (8.5-10.1); Chloride 87 mmol/L (98-107); Creatinine, Serum 1.92 mg/dL (0.55-1.02); EST Glomerular Filtration Rate 28 mL/min (>60); Est Glom Filt Rate - Afr Amer 34 mL/min (>60); Estimated Creatinine Clearance 26.29 ml/min; Globulin 4.5 g/dL (2.2-4.2); Glucose 94 mg/dL (74-106); Lipase 134 U/L (73-393); Potassium 3.9 mmol/L (3.5-5.1); Protein, Total 6.2 g/dL (6.4-8.2); Sodium Level 119 mmol/L (136-145)
--- NOTE | 2020-07-05 23:00 | ED.RN ---
iv site started by dr serafin coronel ultrasound 2 attempts
[2020-07-05 23:08] LABS: Absolute Lymphocyte Count 0.58 X10^3/uL (0.83-4.51); Absolute Neutrophil Count 18.6 X10^3/uL (2.0-7.7); Basophil# 0.07 X10^3/uL; Basophil% 0.3 % (0-1); Eosinophil# 0.04 X10^3/uL; Eosinophils% 0.2 % (0-5); Hematocrit 26.6 % (37-47); Hemoglobin 8.7 g/dL (12.0-15.0); Lymphocyte # 0.58 X10^3/ul (4.0); Lymphocyte % 2.8 % (19-41); Mean Corp Hgb Conc 32.7 g/dL (32-36); Mean Corpuscular Hgb 28.4 pg (27.0-32.0); Mean Corpuscular Volume 86.9 fL (81-99); Mean Platelet Vol. 8.4 fl (6.2-12.0); Monocyte# 0.65 X10^3/uL; Monocyte% 3.2 % (0-10); NRBC Flagged by Analyzer 0 % (0-5); Neutrophil # 18.63 X10^3/uL (2.7-7.7); Neutrophil % 91.4 % (47-70); POSITIVE DIFFERENTIAL YES; POSITIVE MORPHOLOGY YES; Platelet Count 513 K/mm3 (150-450); RBC Distribution Width CV 15.9 % (11.6-14.6); RBC Distribution Width SD 50.8 fl (35.1-43.9); Red Blood Count 3.06 M/mm3 (4.2-5.4); White Blood Count 20.4 K/mm3 (4.4-11.0)
[2020-07-05 23:15] LABS: Differential Indicated SCAN CRITERIA MET
[2020-07-05 23:18] VITALS: BP 86/46; PULSE 98; RESP 18; TEMP 36.4; O2SAT 97
[2020-07-05 23:26] VITALS: BP 82/52; PULSE 96; RESP 18; TEMP 36.3; O2SAT 98
[2020-07-05 23:48] VITALS: BP 80/42; PULSE 96; RESP 16; TEMP 36.3; O2SAT 98
[2020-07-05 23:59] LABS: Differential Comment SCANNED
[2020-07-06] VITALS: BP 104/62; PULSE 98; RESP 16; TEMP 36.3; O2SAT 98
== END 2020-07-06 00:12 | disposition short-term general hospital (02) ==
PROVIDERS: Emergency Provider Emergency Medicine; PCP Family Medicine
DX: A41.9 Sepsis, unspecified organism (principal); R65.21 Severe sepsis with septic shock; E87.1 Hypo-osmolality and hyponatremia; E83.51 Hypocalcemia; K51.90 Ulcerative colitis, unspecified, without complications; R10.84 Generalized abdominal pain; I10 Essential (primary) hypertension; E78.5 Hyperlipidemia, unspecified; Z93.2 Ileostomy status; Z79.899 Other long term (current) drug therapy; Z85.038 Personal history of other malignant neoplasm of large intestine; Z87.891 Personal history of nicotine dependence; Z90.710 Acquired absence of both cervix and uterus; Z90.49 Acquired absence of other specified parts of digestive tract
CPT/HCPCS: 74176; 80053; 83605; 83690; 84484; 85025; 86850; 86900; 86901; 96361; 96365; 96375; 96376; 99285; J7030; J7050; A4216; J2405

== ENCOUNTER → 2020-09-05 11:12 | Outpatient (CLI) | payer MEDICARE, SELFPAY ==
[2020-09-05 12:28] LABS: Absolute Lymphocyte Count 1.42 X10^3/uL (0.83-4.51); Basophil# 0.05 X10^3/uL; Basophil% 0.6 % (0-1); Eosinophil# 0.21 X10^3/uL; Eosinophils% 2.5 % (0-5); Hematocrit 29.4 % (37-47); Hemoglobin 8.9 g/dL (12.0-15.0); Lymphocyte # 1.42 X10^3/ul (4.0); Lymphocyte % 16.8 % (19-41); Mean Corp Hgb Conc 30.3 g/dL (32-36); Mean Corpuscular Hgb 29.9 pg (27.0-32.0); Mean Corpuscular Volume 98.7 fL (81-99); Mean Platelet Vol. 9.9 fl (6.2-12.0); Monocyte# 0.78 X10^3/uL; Monocyte% 9.2 % (0-10); NRBC Flagged by Analyzer 0 % (0-5); Neutrophil # 5.95 X10^3/uL (2.7-7.7); Neutrophil % 70.4 % (47-70); Platelet Count 349 K/mm3 (150-450); RBC Distribution Width CV 15.8 % (11.6-14.6); Red Blood Count 2.98 M/mm3 (4.2-5.4); White Blood Count 8.5 K/mm3 (4.4-11.0)
[2020-09-05 12:52] LABS: ALB/GLOB Ratio 0.7 RATIO (0.9-2.4); AST(SGOT) 20 U/L (15-37); Alanine Aminotransfer ALT/SGPT 33 U/L (13-56); Alkaline Phosphatase 85 U/L (45-117); Anion Gap 8 (5-15); BUN 16 mg/dL (7-18); BUN/Creat Ratio 18.6 RATIO (10-20); Calcium,Total 8.6 mg/dL (8.5-10.1); Chloride 106 mmol/L (98-107); Creatinine, Serum 0.86 mg/dL (0.55-1.02); EST Glomerular Filtration Rate 70 mL/min (>60); Est Glom Filt Rate - Afr Amer 85 mL/min (>60); Globulin 4.3 g/dL (2.2-4.2); Glucose 88 mg/dL (74-106); Magnesium 1.8 mg/dL (1.6-2.6); Potassium 3.8 mmol/L (3.5-5.1); Protein, Total 7.3 g/dL (6.4-8.2); Sodium Level 138 mmol/L (136-145)
== END ==
PROVIDERS: PCP Family Medicine; Referring Provider Family Medicine; Visit Provider Family Medicine
CPT/HCPCS: 36415; 80053; 83735; 85025

== ENCOUNTER → 2020-11-06 10:51 | Outpatient (CLI) | payer MEDICARE, SELFPAY ==
[2020-11-06 12:13] LABS: Absolute Lymphocyte Count 1.37 X10^3/uL (0.83-4.51); Absolute Neutrophil Count 4.8 X10^3/uL (2.0-7.7); Basophil# 0.04 X10^3/uL; Basophil% 0.6 % (0-1); Eosinophils% 2.9 % (0-5); Hemoglobin 11.7 g/dL (12.0-15.0); Lymphocyte # 1.37 X10^3/ul (4.0); Lymphocyte % 19.5 % (19-41); Mean Corp Hgb Conc 32.5 g/dL (32-36); Mean Corpuscular Hgb 30.9 pg (27.0-32.0); Mean Platelet Vol. 10.2 fl (6.2-12.0); Monocyte# 0.58 X10^3/uL; Monocyte% 8.3 % (0-10); NRBC Flagged by Analyzer 0 % (0-5); Neutrophil % 68.4 % (47-70); Platelet Count 242 K/mm3 (150-450); RBC Distribution Width CV 14.3 % (11.6-14.6); RBC Distribution Width SD 50.4 fl (35.1-43.9); Red Blood Count 3.79 M/mm3 (4.2-5.4)
[2020-11-06 12:54] LABS: ALB/GLOB Ratio 0.9 RATIO (0.9-2.4); AST(SGOT) 32 U/L (15-37); Alanine Aminotransfer ALT/SGPT 47 U/L (13-56); Albumin, Serum 3.5 g/dL (3.2-5.0); Alkaline Phosphatase 85 U/L (45-117); Anion Gap 8 (5-15); BUN 17 mg/dL (7-18); BUN/Creat Ratio 20.1 RATIO (10-20); Calcium,Total 8.9 mg/dL (8.5-10.1); Chloride 109 mmol/L (98-107); Creatinine, Serum 0.85 mg/dL (0.55-1.02); EST Glomerular Filtration Rate 72 mL/min (>60); Est Glom Filt Rate - Afr Amer 87 mL/min (>60); Glucose 83 mg/dL (74-106); Potassium 3.6 mmol/L (3.5-5.1); Protein, Total 7.5 g/dL (6.4-8.2); Sodium Level 139 mmol/L (136-145)
== END ==
PROVIDERS: PCP Family Medicine; Referring Provider Family Medicine; Visit Provider Family Medicine
DX: K51.90 Ulcerative colitis, unspecified, without complications (principal); E87.1 Hypo-osmolality and hyponatremia
CPT/HCPCS: 36415; 80053; 83735; 85025

== ENCOUNTER → 2021-06-03 09:56 | Outpatient (CLI) | payer MEDICARE, SELFPAY ==
[2021-06-03 13:34] LABS: Cholesterol 160 mg/dL (200); High Density Lipoprotein 92 mg/dL; Triglycerides 167 mg/dL; Very Low Density Lipoprotein 33 mg/dL (5-40)
== END ==
PROVIDERS: PCP Family Medicine; Referring Provider Family Medicine; Visit Provider Family Medicine
DX: I10 Essential (primary) hypertension (principal)
CPT/HCPCS: 36415; 80061

== ENCOUNTER → 2021-07-03 08:02 | Outpatient (CLI) | payer MEDICARE, SELFPAY ==
--- NOTE | 2021-07-03 08:03 | BI_ITS ---
MAMMOGRAPHY - BILATERAL SCREENING REASON FOR EXAM: Female, 66 years old. Routine annual screening examination. PERTINENT HISTORY: Non-contributory. History of remote bilateral excisional breast biopsies. TECHNIQUE: Digital bilateral breast elda (3D mammographic acquisition) in the CC and MLO projections. 2-D mediolateral oblique (MLO) and craniocaudad (CC) views of both breasts were obtained. CAD: Full Field Digital Mammography with Computer Added Detection was performed. COMPARISON: Comparison is made with prior study dated 05/25/2018. FINDINGS: Breast Composition: There are scattered areas of fibroglandular density. There are no dominant masses or suspicious calcifications. Small benign appearing bilateral axillary lymph nodes. No other significant abnormalities are identified. There has been no significant change since the prior study. BI/SCRN MAMM (CAD)W/ELDA BILAT IMPRESSION: Stable bilateral screening mammogram. Yearly follow-up mammogram recommended. (A) ASSESSMENT CATEGORY: BIRADS Category 2: Benign. A letter regarding these results will be sent to the patient by the facility within 30 days. Approximately 10% of breast cancers are not detected by mammography. A normal mammogram should not delay biopsy of a clinically suspicious abnormality. [id number] Electronically Signed: Maciel Lutz MD at 9:03 EDT , Service support ,
== END ==
PROVIDERS: PCP Family Medicine; Referring Provider Family Medicine; Visit Provider Family Medicine
DX: Z12.31 Encounter for screening mammogram for malignant neoplasm of breast (principal)
CPT/HCPCS: 77063; 77067

== ENCOUNTER 2021-12-03 10:22 | Outpatient (CLI) | payer MEDICARE, SELFPAY ==
[2021-12-03 12:44] LABS: Anion Gap 12 (5-15); BUN 11 mg/dL (7-18); BUN/Creat Ratio 13.5 RATIO (10-20); Calcium,Total 9.6 mg/dL (8.5-10.1); Chloride 104 mmol/L (98-107); Cholesterol 172 mg/dL (200); Creatinine, Serum 0.81 mg/dL (0.55-1.02); EST Glomerular Filtration Rate 75 mL/min (>60); Est Glom Filt Rate - Afr Amer 90 mL/min (>60); Glucose 107 mg/dL (74-106); High Density Lipoprotein 107 mg/dL; Potassium 3.7 mmol/L (3.5-5.1); Sodium Level 141 mmol/L (136-145); Triglycerides 211 mg/dL; Very Low Density Lipoprotein 42 mg/dL (5-40)
== END 2021-12-03 23:59 | disposition short-term general hospital (02) ==
LOC: MFPLAB 10:23
PROVIDERS: PCP Family Medicine; Referring Provider Family Medicine; Visit Provider Family Medicine
DX: I10 Essential (primary) hypertension (principal)
CPT/HCPCS: 36415; 80048; 80061

== ENCOUNTER → 2022-06-09 | Outpatient (CLI) | payer MEDICARE, SELFPAY ==
[2022-06-09 12:15] LABS: Absolute Lymphocyte Count 1.65 X10^3/uL (0.83-4.51); Basophil# 0.04 X10^3/uL; Basophil% 0.5 % (0-1); Eosinophil# 0.19 X10^3/uL; Eosinophils% 2.2 % (0-5); Hematocrit 41.7 % (37-47); Hemoglobin 13.6 g/dL (12.0-15.0); Lymphocyte # 1.65 X10^3/ul (0.83-4.51); Mean Corp Hgb Conc 32.6 g/dL (32-36); Mean Corpuscular Hgb 32.5 pg (27.0-32.0); Mean Corpuscular Volume 99.8 fL (81-99); Mean Platelet Vol. 10.5 fl (6.2-12.0); Monocyte# 0.75 X10^3/uL; Monocyte% 8.6 % (0-10); NRBC Flagged by Analyzer 0 % (0-5); Neutrophil % 69.1 % (47-70); Platelet Count 241 K/mm3 (150-450); RBC Distribution Width CV 13.1 % (11.6-14.6); RBC Distribution Width SD 48.2 fl (35.1-43.9); Red Blood Count 4.18 M/mm3 (4.2-5.4); White Blood Count 8.7 K/mm3 (4.4-11.0)
[2022-06-09 12:33] LABS: Anion Gap 9 (5-15); BUN 14 mg/dL (7-18); BUN/Creat Ratio 16.7 RATIO (10-20); Calcium,Total 9.5 mg/dL (8.5-10.1); Chloride 104 mmol/L (98-107); Cholesterol 158 mg/dL (200); Creatinine, Serum 0.84 mg/dL (0.55-1.02); EST Glomerular Filtration Rate 72 mL/min (>60); Est Glom Filt Rate - Afr Amer 87 mL/min (>60); Glucose 93 mg/dL (74-106); High Density Lipoprotein 95 mg/dL; Potassium 3.9 mmol/L (3.5-5.1); Sodium Level 138 mmol/L (136-145); Triglycerides 141 mg/dL; Very Low Density Lipoprotein 28 mg/dL (5-40)
[2022-06-09 12:42] LABS: Microalbumin,Random Urine < 5.0 mg/L (NO RANGE EST.)
== END | disposition home or self-care (01) ==
LOC: MFPLAB 11:01
PROVIDERS: Visit Provider Family Medicine
DX: K51.90 Ulcerative colitis, unspecified, without complications (principal); I10 Essential (primary) hypertension
CPT/HCPCS: 80048; 80061; 82043; 82570; 85025

== ENCOUNTER → 2023-03-23 | Outpatient (CLI) | payer MEDICARE, SELFPAY ==
--- NOTE | 2023-03-23 09:30 | BI_ITS ---
MAMMOGRAPHY - BILATERAL SCREENING REASON FOR EXAM: Female, 68 years old. Routine annual screening examination. PERTINENT HISTORY: Non-contributory. History of bilateral excisional breast biopsies. TECHNIQUE: Digital bilateral breast elda (3D mammographic acquisition) in the CC and MLO projections. 2-D mediolateral oblique (MLO) and craniocaudad (CC) views of both breasts were obtained. CAD: Full Field Digital Mammography with Computer Added Detection was performed. COMPARISON: Comparison is made with prior study dated July 03, 2021 and May 25, 2018. FINDINGS: Breast Composition: There are scattered areas of fibroglandular density. There are no dominant masses or suspicious calcifications. Stable fat-containing bilateral axillary lymph nodes. No other significant abnormalities are identified. There has been no significant change since the prior study. BI/SCRN MAMM (CAD)W/ELDA BILAT IMPRESSION: Stable bilateral screening mammogram. Yearly follow-up mammogram recommended. (A) ASSESSMENT CATEGORY: BIRADS Category 2: Benign. A letter regarding these results will be sent to the patient by the facility within 30 days. Approximately 10% of breast cancers are not detected by mammography. A normal mammogram should not delay biopsy of a clinically suspicious abnormality. [id number] Electronically Signed: Maciel Lutz MD at 10:36 EDT ,
== END | disposition home or self-care (01) ==
LOC: OPBI 09:28
PROVIDERS: PCP Family Medicine; Referring Provider Family Medicine; Visit Provider Family Medicine
DX: Z12.31 Encounter for screening mammogram for malignant neoplasm of breast (principal)
CPT/HCPCS: 77063; 77067

== ENCOUNTER → 2023-06-22 | Outpatient (CLI) | payer MEDICARE, SELFPAY ==
[2023-06-22 13:31] LABS: Anion Gap 8 (5-15); BUN 13 mg/dL (7-18); Calcium,Total 9.7 mg/dL (8.5-10.1); Chloride 108 mmol/L (98-107); Cholesterol 144 mg/dL (200); EST Glomerular Filtration Rate 59 mL/min (>60); Est Glom Filt Rate - Afr Amer 71 mL/min (>60); Glucose 109 mg/dL (74-106); High Density Lipoprotein 115 mg/dL; Potassium 4.4 mmol/L (3.5-5.1); Sodium Level 138 mmol/L (136-145); Triglycerides 124 mg/dL; Very Low Density Lipoprotein 25 mg/dL (5-40)
[2023-06-22 14:48] LABS: Microalbumin,Random Urine 15.3 mg/L (NO RANGE EST.); Microalbumin:Creatinine Ratio 9.3 mg/g CRE (<30 mg/g CRE)
== END | disposition home or self-care (01) ==
LOC: MFPLAB 10:14
PROVIDERS: PCP Family Medicine; Visit Provider Family Medicine
DX: I10 Essential (primary) hypertension (principal)
CPT/HCPCS: 36415; 80048; 80061; 82043; 82570

== ENCOUNTER → 2023-12-25 | Outpatient (CLI) | payer MEDICARE, SELFPAY ==
[2023-12-25 13:01] LABS: Microalbumin,Random Urine 11.8 mg/L (NO RANGE EST.); Microalbumin:Creatinine Ratio 8.9 mg/g CRE (<30 mg/g CRE)
[2023-12-25 13:11] LABS: Anion Gap 5 (5-15); BUN 17 mg/dL (7-18); BUN/Creat Ratio 18.3 RATIO (10-20); Calcium,Total 9.5 mg/dL (8.5-10.1); Chloride 107 mmol/L (98-107); Cholesterol 161 mg/dL (200); Creatinine, Serum 0.93 mg/dL (0.55-1.02); EST Glomerular Filtration Rate 64 mL/min (>60); Est Glom Filt Rate - Afr Amer 77 mL/min (>60); Glucose 90 mg/dL (74-106); High Density Lipoprotein 120 mg/dL; Potassium 4.1 mmol/L (3.5-5.1); Sodium Level 133 mmol/L (136-145); Triglycerides 89 mg/dL; Very Low Density Lipoprotein 18 mg/dL (5-40)
== END | disposition home or self-care (01) ==
LOC: MFPLAB 09:47
PROVIDERS: PCP Family Medicine; Visit Provider Family Medicine
DX: I10 Essential (primary) hypertension (principal)
CPT/HCPCS: 36415; 80048; 80061; 82043; 82570

== ENCOUNTER 2024-01-11 21:57 | Emergency (ER) | payer MEDICARE, SELFPAY ==
[2024-01-11 21:58] VITALS: BP 141/97; PULSE 104; RESP 18; TEMP 35.3; O2SAT 100; BMI 23.8
--- NOTE | 2024-01-11 22:26 | CT_ITS ---
INDICATION: Gastrointestinal hemorrhage EXAMINATION: CTA abdomen and pelvis - TECHNIQUE: Routine abdominal CT angiogram protocol was performed with IV contrast. MIP images provided. A radiation dose optimization technique was used for this scan. IV Contrast dosage and agent: 100 cc Isovue-370 RADIATION DOSAGE (If Supplied By Facility): CTDIvol = ( 26.83 ) mGy, DLP = ( 517.84 ) mGycm COMPARISON: Prior study dated: 07/05/2020 FINDINGS: Lung bases: Bibasilar dependent and/or fibrotic changes. Liver: Stable mild enlargement. Small cyst right lobe inferiorly. No concerning focal mass. Gallbladder: Surgically absent. Spleen: Normal. Small accessory splenule. Adrenal gland: Normal. Kidneys: Small cortical cysts bilaterally. No hydronephrosis. Pancreas:Normal. Bowel gas pattern: Nonobstructive. Postoperative changes at site of previous right lower quadrant stoma with focally dilated colonic loop and surgical anastomosis. Interval left lower quadrant ostomy placement. No abnormal small bowel distention. Free air: None. Free fluid: None. Pelvis: Pelvic organs: No mass lesion noted. Uterus absent. Small right-sided bladder diverticulum. Bone survey: No aggressive bony lesions. No acute fractures. Adenopathy: No significant pathologic adenopathy detected. Vascular: Mild atherosclerotic changes without aneurysm or dissection. CT/CTA Abd/Pelvis W/WO Contrast IMPRESSION: Extensive bowel surgery with left lower quadrant ostomy. No krysten bowel obstruction or etiology of GI hemorrhage demonstrated. No acute findings in the abdomen or pelvis. Electronically Signed: Matt Rose MD at 0:02 EST Reading Location ID and State: [facility] / [place] Tel , Service support ,
[2024-01-11] MEDS: 0.9% Normal Saline (1000mL) 1,000 ML 999 ML IV (22:38)
[2024-01-11 22:44] LABS: Absolute Lymphocyte Count 1.79 X10^3/uL (0.83-4.51); Absolute Neutrophil Count 3.3 X10^3/uL (2.0-7.7); Basophil# 0.03 X10^3/uL; Basophil% 0.5 % (0-1); Eosinophil# 0.15 X10^3/uL; Eosinophils% 2.6 % (0-5); Hematocrit 36.7 % (37-47); Lymphocyte # 1.79 X10^3/ul (0.83-4.51); Lymphocyte % 30.6 % (19-41); Mean Corp Hgb Conc 32.7 g/dL (32-36); Mean Corpuscular Hgb 31.9 pg (27.0-32.0); Mean Corpuscular Volume 97.6 fL (81-99); Mean Platelet Vol. 9.6 fl (6.2-12.0); Monocyte% 10.3 % (0-10); NRBC Flagged by Analyzer 0 % (0-5); Neutrophil # 3.26 X10^3/uL (2.7-7.7); Neutrophil % 55.7 % (47-70); Platelet Count 185 K/mm3 (150-450); RBC Distribution Width CV 13.3 % (11.6-14.6); Red Blood Count 3.76 M/mm3 (4.2-5.4); White Blood Count 5.9 K/mm3 (4.4-11.0)
[2024-01-11 23:03] LABS: Anion Gap 6 (5-15); BUN 20 mg/dL (7-18); BUN/Creat Ratio 23.7 RATIO (10-20); CRP < 2.90 mg/L (0.0-3.0); Chloride 104 mmol/L (98-107); Creatinine, Serum 0.84 mg/dL (0.55-1.02); EST Glomerular Filtration Rate 71 mL/min (>60); Est Glom Filt Rate - Afr Amer 86 mL/min (>60); Estimated Creatinine Clearance 55.35 ml/min; Glucose 99 mg/dL (74-106); Potassium 3.6 mmol/L (3.5-5.1); Sodium Level 134 mmol/L (136-145)
[2024-01-11 23:04] LABS: Partial Thromboplast Time 25.4 Seconds (24.1-36.2); Prothrombin Time (Protime)PT. 13.4 SECONDS (11.7-14.9)
[2024-01-11 23:17] LABS: Lactic Acid 2.1 mmol/L (0.4-1.9)
[2024-01-12] VITALS: BP 142/69; O2SAT 100
--- NOTE | 2024-01-12 00:28 | EDS_ITS ---
HPI History of Present Illness Chief Complaint: GI Bleed Informant: patient and friend Narrative Narrative: Patient is a 68-year-old female with past medical history of of hypertension hyperlipidemia depression and ulcerative colitis leading to the need for colon resection and colostomy. She states that she does not take any type of immunosuppressive drugs such as Stelara Taltz or Humira and she denies following with a specialist such as a community outreach manager or GI physician. She states she ate dinner tonight and afterwards while she was relaxing watching TV noticed there was blood oozing into her ostomy bag. She states there is no pain she denies any fevers or chills she denies any history of bleeding disorder or blood thinner use but states that this is not typically occur which concerned her so therefore she comes in for evaluation [facility] Medical History (Updated 01/12/24 @ 02:[address] Miguelito Bazan, ) Ileostomy in place Ulcerative colitis Home Medications alendronate 70 mg tablet 70 mg PO WE bones 04/20/20 [History Last Taken 05/31/20 08:00 70 MG] atorvastatin 20 mg tablet 20 mg PO DAILY cholesterol 04/20/20 [History Last Taken 05/30/20 22:00 20 MG] metoprolol tartrate 25 mg tablet 100 mg PO BID blood pressure 04/20/20 [History Last Taken 05/30/20 22:00 25] pantoprazole 40 mg tablet,delayed release 40 mg PO DAILY #30 tabs 04/23/20 [Rx Last Taken 05/30/20 10:00 40 MG] ferrous sulfate, dried 159 mg (45 mg iron) tablet,extended release 65 mg PO DAILY 05/31/20 [History Last Taken 05/30/20 08:00 65 MG] wmsxoxmvixua-Tg-fbkg-minerals 1 ea PO DAILY 07/05/20 [History Last Taken Unknown] Allergy/AdvReac Type Severity Reaction Status Date / Time No Known Allergies Allergy Verified 01/11/24 21:57 Social History Smoking Status: Former smoker ROS ROS ED Constitutional Constitutional ED: Denies chills or fever(s) Eyes Eyes: Denies change in vision ENT ENT ED: Denies sore throat Cardiovascular Cardiovascular: Denies chest pain Respiratory/Chest Respiratory/Chest: Denies cough or dyspnea Gastrointestinal Gastrointestinal: Reports other Details: Positive bloody stool ; Denies abdominal pain, diarrhea, nausea or vomiting Genitourinary Genitourinary ED: Denies dysuria Musculoskeletal Musculoskeletal: Denies myalgias Integumentary Denies rash Neurologic Neurologic: Denies headache(s) Hematologic/Lymphatic Hematologic/Lymphatic: Denies easy bleeding or easy bruising EXAM Physical Exam Const Vital Signs: 01/11/24 21:58 01/12/24 00:00 01/12/24 00:34 Temperature 95.6 F L 98.6 F Temperature Source Temporal Pulse Rate 104 H 67 Respiratory Rate 18 14 Blood Pressure 141/97 H 142/69 H 147/67 H Blood Pressure Mean 111 87 93 Pulse Ox 100 100 99 Oxygen Delivery Method Room Air Positive well nourished and well developed General Appearance ED: well developed; Negative for pallor HEENT Reports moist mucous membranes HEENT Narrative: No dried blood or active bleeding noted in the posterior pharynx Eyes PERRL and EOMs intact bilaterally General Eye ED: Negative for pale conjunctiva or scleral icterus Neck supple Resp normal respiratory effort and clear to auscultation bilaterally Cardio regular rate and regular rhythm Rate: other Other Details: Radial and carotid pulses equal and symmetric GI non-tender and non-distended GI Narrative: Abdomen has postsurgical changes but overall is soft nontender and nondistended with normal active bowel sounds. There is a colostomy in place in the left mid to lower quadrant abdomen. There is darkish red fluid consistent with blood within the pouch. However no active bleeding noted. No voluntary guarding or rigidity or pulsatile mass Auscultation: normoactive bowel sounds Palpation: soft Extremity normal to inspection Neuro oriented x3, CN's II-XII intact bilaterally and no sensory deficits noted Sensorium / Orientation: alert Motor Exam: strength 5/5 throughout Psych mental status grossly normal Skin no rashes or lesions noted, no wounds and skin turgor normal General Skin Exam: Negative for jaundice or pallor MDM MDM MDM Narrative Medical decision making narrative: Patient arrived to the ER slightly hypertensive otherwise with stable vitals. She reported painless bleeding into her colostomy while at rest after eating dinner. She denies any history of bleeding disorder or blood thinner use. With her history of ulcerative colitis not on immunosuppressive therapy this is most likely flareup of that leading to spontaneous bleeding. However in order to assure that she does not have acute blood loss anemia or signs of infection leading to her symptoms I did elect to perform basic laboratory studies and also to ensure there is no signs of active bleeding a CTA was obtained. Labs revealed no signs of acute blood loss anemia or acute kidney injury or severe electrolyte derangement. CT scan did not show any signs of obstruction or infection or active bleeding. The patient's blood pressure was stable she was not having pain she is able to ambulate without any lightheadedness or dizziness and on reevaluation there is now brown stool present within the ostomy pouch and no further active bleeding noted. With spontaneous resolution of her bleeding no need for blood transfusion and no sign of active bleeding on the CTA there is no need for further workup or admission and she is otherwise safe for discharge History & Record Review Discussion w/independent historian: Patient Lab Data Attestation: I reviewed the patient's lab results. Labs: Laboratory Results - last 24 hr 01/11/24 22:41 WBC 5.9 RBC 3.76 L Hgb 12.0 Hct 36.7 L MCV 97.6 MCH 31.9 MCHC 32.7 RDW Std Deviation 48.0 H RDW Coeff of Gulshan 13.3 Plt Count 185 MPV 9.6 Immature Gran % (Auto) 0.300 Neut % (Auto) 55.7 Lymph % (Auto) 30.6 Rogers % (Auto) 10.3 H Eos % (Auto) 2.6 Baso % (Auto) 0.5 Absolute Neuts (auto) 3.3 Absolute Lymphs (auto) 1.79 Nucleated RBC % 0 PT 13.4 INR 1.0 APTT 25.4 Sodium 134 L Potassium 3.6 Chloride 104 Carbon Dioxide 24.0 Anion Gap 6 BUN 20 H Creatinine 0.84 Estim Creat Clear Calc 55.35 Est GFR (MDRD) Af Amer 86 Est GFR (MDRD) Non-Af 71 BUN/Creatinine Ratio 23.7 H Glucose 99 Lactic Acid 2.1 H* Calcium 9.0 C-React Prot Ext Range < 2.90 Radiography Diagnostic Testing: Clinical Impression(s) from Imaging Studies Abdomen/Pelvis CTA 01/11/24 22:26 IMPRESSION: Extensive bowel surgery with left lower quadrant ostomy. No krysten bowel obstruction or etiology of GI hemorrhage demonstrated. No acute findings in the abdomen or pelvis. Electronically Signed: Matt Rose MD at 0:02 EST , Discharge Plan Triage Chief Complaint: GI Bleed ED Provider: Miguelito Bazan Dx/Rx/DC Orders Clinical Impression: GI bleed, Hyperlipidemia, Hypertension Instructions: GI Bleeding Causes and Tests Prescriptions: No Action atorvastatin 20 MG tablet 20 mg PO DAILY alendronate 70 MG tablet 70 mg PO WE metoprolol tartrate 25 MG tablet 100 mg PO BID pantoprazole 40 MG tablet 40 mg PO DAILY Qty: 30 0RF ferrous sulfate, dried 159 MG tablet extended release 65 mg PO DAILY bfxnzzxfsujr-Mv-hgxv-minerals 1 EACH tablet 1 ea PO DAILY Primary Care Provider: Virginie Mazariegos Referrals: Virginie Mazariegos MD [Primary Care Provider] - Activity Restrictions/Additional Instructions: Your workup today showed that your blood volume is normal and the CAT scan revealed no obvious cause of the bleed. Moreover on reevaluation it appears your bleeding has spontaneously improved/stopped. Therefore continue all your home medications as directed by your doctor and follow-up with her for repeat evaluation. If you develop increased abdominal pain worsening bleeding feel lightheaded dizzy or pass out or have any further concerns please return for repeat evaluation Disposition Disposition: Home, Self Care Discharge Date/Time: 01/12/24 00:35
[2024-01-12 00:34] VITALS: BP 147/67; PULSE 67; RESP 14; TEMP 37; O2SAT 99
[2024-01-12 02:41] LABS: Reflex Lactate? Y
== END 2024-01-12 00:35 | disposition home or self-care (01) ==
PROVIDERS: Emergency Provider Emergency Medicine; PCP Family Medicine; Visit Provider Emergency Medicine
DX: K92.2 Gastrointestinal hemorrhage, unspecified (principal); Z93.2 Ileostomy status; I10 Essential (primary) hypertension; E78.5 Hyperlipidemia, unspecified; Z87.891 Personal history of nicotine dependence; Z79.899 Other long term (current) drug therapy
CPT/HCPCS: 74174; 80048; 83605; 85025; 85610; 85730; 86140; 96360; 99283; J7030; Q9967; A4216

== ENCOUNTER → 2024-12-26 | Outpatient (CLI) | payer MEDICARE, SELFPAY ==
[2024-12-26 13:09] LABS: Protein, Urine (Random) 25.9 mg/dL (<11.9); Protein:Creat Ratio 160 mg/g CRE (0-200)
[2024-12-26 16:17] LABS: AST(SGOT) 27 U/L (15-37); Alanine Aminotransfer ALT/SGPT 48 U/L (13-56); Anion Gap 8 (5-15); BUN 17 mg/dL (7-18); BUN/Creat Ratio 21.6 RATIO (10-20); Calcium,Total 9.1 mg/dL (8.5-10.1); Chloride 111 mmol/L (98-107); Cholesterol 150 mg/dL (200); Creatinine, Serum 0.79 mg/dL (0.55-1.02); EST Glomerular Filtration Rate 77 mL/min (>60); Est Glom Filt Rate - Afr Amer 93 mL/min (>60); Glucose 101 mg/dL (74-106); High Density Lipoprotein 98 mg/dL; Potassium 3.9 mmol/L (3.5-5.1); Sodium Level 140 mmol/L (136-145); Triglycerides 153 mg/dL; Very Low Density Lipoprotein 31 mg/dL (5-40)
[2024-12-26 16:39] LABS: Absolute Lymphocyte Count 1.34 X10^3/uL (0.83-4.51); Absolute Neutrophil Count 4.4 X10^3/uL (2.0-7.7); Basophil# 0.06 X10^3/uL; Basophil% 0.9 % (0-1); Eosinophil# 0.09 X10^3/uL; Eosinophils% 1.4 % (0-5); Hematocrit 40.7 % (37-47); Hemoglobin 12.8 g/dL (12.0-15.0); Lymphocyte # 1.34 X10^3/ul (0.83-4.51); Lymphocyte % 20.5 % (19-41); Mean Corp Hgb Conc 31.4 g/dL (32-36); Mean Corpuscular Hgb 31.5 pg (27.0-32.0); Mean Corpuscular Volume 100.2 fL (81-99); Mean Platelet Vol. 11.1 fl (6.2-12.0); Monocyte% 9.2 % (0-10); NRBC Flagged by Analyzer 0 % (0-5); Neutrophil # 4.43 X10^3/uL (2.7-7.7); Neutrophil % 67.7 % (47-70); Platelet Count 207 K/mm3 (150-450); RBC Distribution Width SD 51.9 fl (35.1-43.9); Red Blood Count 4.06 M/mm3 (4.2-5.4); White Blood Count 6.5 K/mm3 (4.4-11.0)
== END | disposition home or self-care (01) ==
LOC: MFPLAB 09:56
PROVIDERS: PCP Family Medicine; Referring Provider Family Medicine; Visit Provider Family Medicine
DX: I10 Essential (primary) hypertension (principal); K51.90 Ulcerative colitis, unspecified, without complications; E78.5 Hyperlipidemia, unspecified
CPT/HCPCS: 36415; 80048; 80061; 82570; 84156; 84443; 84450; 84460; 85025